=== PATIENT | female | born 1985 | race Caucasian/White ===

== ENCOUNTER 2021-11-04 16:01 | Outpatient (REF) | payer OTHER, MEDICAID, SELFPAY ==
--- NOTE | ~2021-11-04 | XR_ITS ---
EXAMINATION: X-RAY RIGHT HAND X-RAY LEFT HAND CLINICAL INFORMATION: Pain. COMPARISON: None TECHNIQUE: 3 views of each hand. FINDINGS: No acute fracture or malalignment. Carpal rows are maintained. No significant degenerative degenerative osteoarthritis. No erosions. No suspicious soft tissue calcifications. No unexpected radiopaque foreign bodies. XR/XR hand RT min 3V IMPRESSION: Normal radiographic examinations of both hands.
--- NOTE | ~2021-11-04 | XR_ITS ---
EXAMINATION: X-RAY RIGHT HAND X-RAY LEFT HAND CLINICAL INFORMATION: Pain. COMPARISON: None TECHNIQUE: 3 views of each hand. FINDINGS: No acute fracture or malalignment. Carpal rows are maintained. No significant degenerative degenerative osteoarthritis. No erosions. No suspicious soft tissue calcifications. No unexpected radiopaque foreign bodies. XR/XR hand LT min 3V IMPRESSION: Normal radiographic examinations of both hands.
[2021-11-04 16:57] LABS: MANUAL DIFF FLAG NO
[2021-11-04 17:41] LABS: Basophils Absolute Auto 0.1 X10*3/uL (0.0-0.2); Basophils Percent Auto 0.8 % (0-2); Eosinophils Absolute Auto 0.3 X10*3/uL (0.0-0.4); Eosinophils Percent Auto 4.1 % (0-4); Hematocrit 40.1 % (37.0-47.0); Hemoglobin 13.3 g/dl (12.0-16.0); Imm Gran Abs Auto 0.03 X10*3/uL (0.00-0.03); Imm Gran Pct Auto 0.4 % (0.0-0.4); Lymphocytes Absolute Auto 2.5 X10*3/uL (1.2-4.9); Lymphocytes Percent Auto 32.1 % (20-40); Mean Corpuscular HGB Conc 33.2 g/dl (31.0-35.0); Mean Corpuscular Hemoglobin 32.5 pg (27.0-33.0); Mean Platelet Volume 9.8 fL (9.4-12.3); Monocytes Absolute Auto 0.5 X10*3/uL (0.1-1.2); Monocytes Percent Auto 6.9 % (2-11); Neutrophils Absolute Auto 4.4 x10*3/uL (2.0-8.3); Neutrophils Percent Auto 55.7 % (45-73); Platelet Count 347 X10*3/uL (160-400); Red Blood Count 4.09 X10*6/uL (4.20-5.50); Red Cell Distribution Width 12.9 % (11.0-16.0); White Blood Count 7.9 X10*3/uL (4.8-10.8)
[2021-11-04 18:06] LABS: Alanine Aminotransferase 16 U/L (0-31); Albumin Level 4.4 g/dL (3.5-5.0); Alkaline Phosphatase 55 U/L (39-117); Anion Gap 16 (12-20); Aspartate Amino Transferase 21 U/L (5-31); Bilirubin Total 0.3 mg/dL (0.0-1.0); Blood Urea Nitrogen 13 mg/dL (9-16); Calcium 9.3 mg/dL (8.4-10.2); Carbon Dioxide 28 mmol/L (22-29); Chloride 102 mmol/L (96-108); Estimated Glomerular Filt Rate > 60; Glucose Random 74 mg/dL (60-115); Potassium 4.5 mmol/L (3.3-5.1); Rheumatoid Factor < 15.0 IU/mL (<15.0); Sodium 141 mmol/L (135-145); Total Protein 7.1 g/dL (6.5-8.0)
[2021-11-04 19:58] LABS: Erythrocyte Sedimentation Rate 3 MM/HR (0-20)
[2021-11-07 11:36] LABS: CRP High Sensitivity 0.4 mg/L
[2021-11-08 12:57] LABS: Anti Nuclear Antibody Screen NEGATIVE (NEGATIVE)
[2021-11-09 17:26] LABS: Cyclic Citrullinated Peptide <16 UNITS
== END 2021-11-04 16:02 | disposition home or self-care (01) ==
LOC: HO.HMGCX 16:01
PROVIDERS: PCP Internal Medicine; Visit Provider Family Medicine
DX: Z00.00 Encounter for general adult medical examination without abnormal findings (principal); M79.89 Other specified soft tissue disorders
CPT/HCPCS: 36415; 73130; 80053; 85025; 85652; 86038; 86039; 86141; 86200; 86431

== ENCOUNTER 2023-03-12 08:05 | Emergency (ER) | payer MEDICARE, MEDICAID, SELFPAY ==
[2023-03-12 08:08] VITALS: BP 142/87; PULSE 98; RESP 18; TEMP 37.5; O2SAT 100; BMI 20.7
[2023-03-12 08:18] VITALS: BP 123/90; PULSE 88; RESP 16; TEMP 36.6; O2SAT 100
--- OUTSIDE RECORDS SUMMARY | 2023-03-12 08:21 | XMS_ITS | Continuity of Care Document ---
Author Name Unknown Organization [facility] ter Address [address] [place] [address]- Care Team Providers Care Environmental Compliance Inspector Name Role Phone Kulwinder Kirkland MD Primary Care Physician [phone] [place] [facility] [place] - 08/06/[address] [address]- Attending Physician: Kulwinder Kirkland MD Admitting Physician: Kulwinder Kirkland MD Referring Physician: Kulwinder Kirkland MD Allergies, Adverse Reactions, Alerts Substance Reaction Severity Status doxycycline Hives Active Compazine Active vancomycin Active Medications gabapentin 300 mg oral capsule 1, capsule, By Mouth, 3 times a day, # 90 capsule, Refills 0, Tot. Refills 0, Maintenance, 218:41:00 EDT, Route to Pharmacy Electronically, [id number], 162, cm, 07/07/20 17:48:00 EDT, Height, 55, kg, 07/07/20 17:48:00 EDT, Dry Weight Start Date: 07/15/20 Status: Ordered lactulose 10 gm/15 ml oral syrup 30 mL = 20 Gm, By Mouth, 2 times a day, PRN as needed for constipation, # 480 mL, 1 Refills, Maintenance, 06/23/20 12:09:00 EDT, Syrup, [facility]/pharmacy #[id number], 30 mL By Mouth 2 times a day,PRN:as needed for constipation, 163, cm, 02/21/20 19:43:00 EST, He... Start Date: 06/23/20 Status: Ordered lamotrigine 25 mg oral tablet 50 mg, 2, tablet, By Mouth, Daily, # 60 tablet, Refills 1, Tot. Refills 1, Maintenance, 05/13/20 11:47:00 EDT, Route to Pharmacy Electronically, [facility]/pharmacy #[id number], Partial fill upon patient request if the prescription is for a schedule II opioid drug... Start Date: 05/13/20 Stop Date: 07/12/20 Status: Ordered prazosin 1 mg oral capsule 1 mg, 1, capsule, By Mouth, Daily at bedtime, # 30 capsule, Refills 1, Tot. Refills 1, Maintenance,05/13/20 11:49:00 EDT, Route to Pharmacy Electronically, [id number], Partial fill upon patient request if the prescription is for a schedule II... Start Date: 05/13/20 Status: Ordered RisperDAL 0.5 mg oral tablet 0.5 mg, 1, tablet, By Mouth, Daily at bedtime, PRN, # 30 tablet, Refills 1, Tot. Refills 1, Maintenance, Agitation Anxiety, 05/13/20 11:48:00 EDT, Route to Pharmacy Electronically, [facility]/pharmacy #[id number], Partial fill upon patient request if the prescript... Start Date: 05/13/20 Stop Date: 07/12/20 Status: Ordered Problem List Condition Effective Dates Status Health Status Inform ant ADHD (attention deficit hype ractivity disorder)(Confirmed) Active Chest wall pain(Confirmed) Active Constipation(Confirmed) Active Bipolar disorder with depression(Confirmed) Active Sleep disturbance(Confirmed) Active Generalized anxiety disorder(Confirmed) Active Headache(Confirmed) Active Major depression(Confirmed) Active Pain in right arm(Confirmed) Active Leg pain, right(Confirmed) Active Tobacco abuse(Confirmed) Active Social History Social History Type Response Smoking Status 10 or more cigarette s (1/2 pack or more)/day in last 30 days; Type: Cigarettes; Other: Reports smoking 1 to 1.5 packs/day (cigarettes), increased with recent stress; entered on: 01/28/20 Sex
--- OUTSIDE RECORDS SUMMARY | 2023-03-12 08:21 | XMS_ITS | Continuity of Care Document ---
Author Name Unknown Organization [facility] Address [address] [place] [address] [address] [place] [address]- Care Team Providers Care Environmental Science Technician Name Role Phone Kulwinder Kirkland MD Primary Care Physician Encounter [facility] [place] Date(s): 08/07/20 - 09/06/[address] [place] [address]- Attending Physician: Chayo Mcginnis Admitting Physician: AdmChayo borjas Referring Physician: AdmtrChayo Allergies, Adverse Reactions, Alerts Substance Reaction Severity Status doxycycline Hives Active vancomycin Active Compazine Active Medications gabapentin 300 mg oral capsule 1, capsule, By Mouth, 3 times a day, # 90 capsule, Refills 0, Tot. Refills 0, Maintenance, 218:41:00 EDT, Route to Pharmacy Electronically, [id number], 162, cm, 07/07/20 17:48:00 EDT, Height, 55, kg, 07/07/20 17:48:00 EDT, Dry Weight Start Date: 07/15/20 Status: Ordered lactulose 10 gm/15 ml oral syrup 30 mL = 20 Gm, By Mouth, 2 times a day, PRN as needed for constipation, # 480 mL, 1 Refills, Maintenance, 06/23/20 12:09:00 EDT, Syrup, [facility]/pharmacy #[id number], 30 mL By Mouth 2 times a day,PRN:as needed for constipation, 163, cm, 02/21/20 19:43:00 EST, He... Start Date: 06/23/20 Status: Ordered lamotrigine 25 mg oral tablet 50 mg, 2, tablet, By Mouth, Daily, # 60 tablet, Refills 1, Tot. Refills 1, Maintenance, 05/13/20 11:47:00 EDT, Route to Pharmacy Electronically, [facility]/pharmacy #[id number], Partial fill upon patient request if [...] 05/13/20 11:48:00 EDT, Route to Pharmacy Electronically, [facility]/pharmacy #[id number], Partial fill upon patient request if [...]
--- OUTSIDE RECORDS SUMMARY | 2023-03-12 08:21 | XMS_ITS | Continuity of Care Document ---
Author Name Unknown Organization [facility] ter Address [address] [place] [address]- Care Team Providers Care Ophthalmic Medical Technologist Name Role Phone Not on Staff, PCP Primary Care Physician Unavail able [place] [facility] [place] - 07/02/[address] [address]- Discharge Disposition: A-D/C AMA Attending Physician: Mikayla De La O MD Admitting Physician: Mikayla De La O MD Referring Physician: Not on Staff, Referring MD Allergies, Adverse Reactions, Alerts Substance Reaction Severity Status doxycycline Hives Active vancomycin Active Compazine Active Immunizations Given and Recorded Vaccine Date Status Refusal Reason SARS-CoV-2 (COVID-19) mRNA BNT-162b2 vac 03/04/21 Recorded SARS-CoV-2 (COVID-19) mRNA BNT-162b2 vac 07/01/20 Recorded SARS-CoV-2 (COVID-19) mRNA BNT-162b2 vac 06/10/20 Recorded Medications Methadone = 85 mg, By Mouth, Daily, 0 Refills, Maintenance, 02/24/21 12:00:00 EST, Partial fill upon patient request if the prescription is for a schedule II opioid drug. Start Date: 02/24/21 Status: Ordered Protonix 40 mg oral delayed release tablet 1 tablet = 40 mg, By Mouth, Daily, # 30 tablet, 3 Refills, Maintenance, 07/30/21 15:15:00 EDT, CR Tablet, 163, cm, 07/30/21 14:17:00 EDT, Height, 45.7, kg, 07/25/21 14:49:00 EDT, Dry Weight Start Date: 07/30/21 Stop Date: 11/27/21 Status: Ordered tiZANidine 2 mg oral tablet 2 mg, 1, tablet, By Mouth, Every 8 hours, PRN, # 15 tablet, Refills 0, Tot. Refills 0, Maintenance,as needed for muscle spasm, 08/11/21 11:55:00 EDT, Route to Pharmacy Electronically, [facility]/pharmacy #[id number], 163, cm, 07/30/21 14:17:00 EDT, Height, 45.7,... Start Date: 08/11/21 Status: Ordered Problem List Condition Confirmation Course Effective Dates Status H ealth Status Informant ADHD (attention deficit hyperactivity disorder) Confirmed Active Chest wall pain Confirmed Active Constipation Confirmed Active Bipolar disorder with depression Confirmed Active Sleep disturbance Confirmed Active Substance dependence Confirmed Active Generalized anxiety disorder Confirmed Active Headache Confirmed Active Suprasellar mass Confirmed Active Major depression Confirmed Active Major depressive disorder Confirmed Active Neck pain Confirmed Active Otitis externa, left Confirmed Active Pain in right arm Confirmed Active Leg pain, right Confirmed Active Healthcare maintenance Confirmed Active Tobacco abuse Confirmed Active Underweight Confirmed Active Results Radiology Reports * Exam Date Time Procedure Performing Provider Status 07/02/22 12:[address] Abd/Pelvis W/ IV Contrast Only Emilia Levy; Auth (Verified) Notes: (CT Abd/Pelvis W/ IV Contrast Only) Reason For Exam: vomiting, weight loss, abdominal pain;Other: RESULT: CT Abd/Pelvis W/ IV Contrast Only CT Abd/Pelvis W/ IV Contrast Only Hx of Present Illness: wt loss and black stools today; Reason: Other:; vomiting, weight loss, abdominal pain; Clinical Question(s): Tumor Primary; Order Comment: TECHNIQUE: Spiral CT through the abdomen and pelvis with IV contrast formatted in 3 planes. 100 cc of Omnipaque 300 was administered intravenously. This study was performed without oral contrast. Weight-based protocol using automatic tube modulation was used to optimize exposure parameters. CTDIvol Body: 9.30 mGy, DLP Body: 461 mGy*cm. COMPARISON: CT of the abdomen and pelvis dated 05/20/2015. FINDINGS: Sample Coordinator View Findings, Lines and Tubes: CTA of the chest and abdomen dated 07/25/2021. Visualized Chest: Lung bases are clear. No pleural effusion. The heart is normal in size. No pericardial effusion. Diaphragm: Normal. Liver: Normal. Gallbladder: No CT evidence of gallbladder pathology. Bile ducts: No biliary ductal dilation. Spleen: Normal. Pancreas: Normal. Adrenal glands: Normal. Kidneys and ureters: No hydronephrosis, stones, or suspicious masses. Right lower pole hypodensity that is too small to characterize is noted, requiring no dedicated follow up. Bladder: Normal. Reproductive organs: Unremarkable. Numerous prominent dilated pelvic venous structures in the adnexa, left greater than right, and dilated gonadal veins, especially on the left side. Similar findingson the exam in 2016. Stomach, small bowel, and large bowel: Normal. Appendix: Not seen, but no evidence of appendicitis. Peritoneum and retroperitoneum: No ascites or pneumoperitoneum. No omental or mesenteric lesions. Lymph nodes: No enlarged lymph nodes. Blood vessels: Normal. No aneurysm. No evidence of venous thrombosis. Dilated pelvic venous structures as above. Abdominal and pelvic wall: Unremarkable. Bones: No acute abnormality. IMPRESSION: No acute abnormality. There are again dilated pelvic venous structures and dilated gonadal veins, especially on the left side. There were similar findings in 2016. This finding is nonspecific but can be correlated for clinical evidence of pelvic congestion syndrome. WSN: [id number] Ordering Physician: Mikayla De La O Dictated By: Janiya Contreras MD Dictated Date/Time: 07/02/22 12:46 p Reviewed By: Janiya Contreras MD Signed By: Janiya Contreras MD Signed Date/Time: 07/02/22 12:46 pm Transcribed By: MILLIE Transcribed Date/Time: 07/02/22 12:41 pm Vital Signs Most recent to oldest [Reference Range]: 1 2 Oxygen Saturation [94-100 %] 99 % (07/02/22 10:00 AM) 99 % (07/02/22 9:49 AM) Pulse Rate [55-90 bpm] 88 bpm (07/02/22 10:00 AM) 84 bpm (07/02/22 9:49 AM) Blood Pressure [90-138/55-84 mm Hg] 126/ 87mm Hg (07/02/22 10:00 AM) Respiratory Rate [16-30 br/min] 16 br/mi n (07/02/22 10:00 AM) Temperature [96.8-100.4 DegF] 99.0 DegF (07/02/22 10:00 AM) Mode of Delivery (Oxygen) Room air (07/02/22 9:49 AM) Social History Social History Type Response Smoking Status 10 or more cigarette s (1/2 pack or more)/day in last 30 days; Type: Cigarettes; Other: Reports smoking 1 to 1.5 packs/day (cigarettes), increased with recent stress; entered on: 01/28/20 Sex EKG study * Event Display: ECG 12-Lead Authored Date: [id number] Please click on pdf link to open report * Event Display: ECG 12-Lead Authored Date: Ventricular Rate: 55 BPM Atrial Rate: 55 BPM P-R Interval: 118 ms QRS Duration: 76 ms Q-T Interval: 448 ms QTC Calculation(Bazett): 428 ms P [place]: 29 degrees R [place]: 85 degrees T [place]: 73 degrees Sinus bradycardia Otherwise normal ECG When compared with ECG of 25-JUL-2021 16:08, No significant change was found Confirmed by KIRA MONSALVE ([id number]) on 07/02/2022 1:25:58 PM [place]: KIRA MONSALVE CT Abdomen and Pelvis W contrast IV * ARACELI Yin S: EVELINE Contreras MD, Janiya N: VERIFY Event Display: Result: Authored Date: [id number] CT Abd/Pelvis W/ IV Contrast Only Hx of Present Illness: wt loss and black stools today; Reason: Other:; vomiting, weight loss, abdominal pain; Clinical Question(s): Tumor Primary; Order Comment: TECHNIQUE: Spiral CT through the abdomen and pelvis with IV contrast formatted in 3 planes. 100 cc of Omnipaque 300 was administered intravenously. This study was performed without oral contrast. Weight-based protocol using automatic tube modulation was used to optimize exposure parameters. CTDIvol Body: 9.30 mGy, DLP Body: 461 mGy*cm. COMPARISON: CT of the abdomen and pelvis dated 05/20/2015. FINDINGS: Sample Coordinator View Findings, Lines and Tubes: CTA of the chest and abdomen dated 07/25/2021. Visualized Chest: Lung bases are clear. No pleural effusion. The heart is normal in size. No pericardial effusion. Diaphragm: Normal. Liver: Normal. Gallbladder: No CT evidence of gallbladder pathology. Bile ducts: No biliary ductal dilation. Spleen: Normal. Pancreas: Normal. Adrenal glands: Normal. Kidneys and ureters: No hydronephrosis, stones, or suspicious masses. Right lower pole hypodensity that is too small to characterize is noted, requiring no dedicated follow up. Bladder: Normal. Reproductive organs: Unremarkable. Numerous prominent dilated pelvic venous structures in the adnexa, left greater than right, and dilated gonadal veins, especially on the left side. Similar findingson the exam in 2016. Stomach, small bowel, and large bowel: Normal. Appendix: Not seen, but no evidence of appendicitis. Peritoneum and retroperitoneum: No ascites or pneumoperitoneum. No omental or mesenteric lesions. Lymph nodes: No enlarged lymph nodes. Blood vessels: Normal. No aneurysm. No evidence of venous thrombosis. Dilated pelvic venous structures as above. Abdominal and pelvic wall: Unremarkable. Bones: No acute abnormality. IMPRESSION: No acute abnormality. There are again dilated pelvic venous structures and dilated gonadal veins, especially on the left side. There were similar findings in 2016. This finding is nonspecific but can be correlated for clinical evidence of pelvic congestion syndrome. WSN: [id number] Ordering Physician: Mikayla De La O Dictated By: Janiya Contreras MD Dictated Date/Time: 07/02/22 12:46 p Reviewed By: Janiya Contreras MD Signed By: Janiya Contreras MD Signed Date/Time: 07/02/22 12:46 pm Transcribed By: MILLIE Transcribed Date/Time: 07/02/22 12:41 pm Patient Care team information Care Team Personnel Name: Not on Staff, PCP Position: S Physician (General Medicine) Member Role: PCP Care Team Related Persons Name: TEMI STAPLES Name: SUSAN DARBY Address: [address] [address] Name: SUSAN BANUELOS Address: [address] [address] Name: CLYDE RM Address: [place] [address]
--- OUTSIDE RECORDS SUMMARY | 2023-03-12 08:21 | XMS_ITS | Continuity of Care Document ---
Author Name Unknown Organization [facility] ter Address [address] [place] [address]- Care Team Providers Care Bike Mechanic Name Role Phone Emma Wang NP Primary Care Physician [place] [facility] [place] Date(s): 06/27/19 - 08/30/[address] [address]- [facility] Attending Physician: Emma Wang NP Admitting Physician: Emma Wang NP Referring Physician: Emma Wang NP Allergies, Adverse Reactions, Alerts Substance Reaction Severity Status vancomycin Active Compazine Active Medications clonazePAM 1 mg oral tablet See Instructions, TAKE 1 TABLET BY MOUTH TWICE A DAY, # 60 tablet, 0 Refills, Soft Stop, 04/17/19 11:06:00 EST, [id number], 163, cm, 04/11/19 22:26:00 EST, Height, 52.5, kg, 04/11/19 22:26:00EST, Dry Weight Start Date: 04/17/19 Status: Ordered Problem List Condition Effective Dates Status Health Status Inform ant Bipolar disorder with depression(Confirmed) Active Tobacco abuse(Confirmed) Active Social History Social History Type Response Smoking Status 10 or more cigarette s (1/2 pack or more)/day in last 30 days entered on: 08/10/18 Sex
--- OUTSIDE RECORDS SUMMARY | 2023-03-12 08:21 | XMS_ITS | Continuity of Care Document ---
Author Name Unknown Organization [facility] ter Address [address] [place] [address]- Care Team Providers Care Tank Setter Name Role Phone Kulwinder Kirkland MD Primary Care Physician Encounter [facility] [place] Date(s): 02/07/20 - 02/07/[address] [address]- Discharge Disposition: A-Error Chart/Home (ED Only) Attending Physician: Not on Staff, Attending MD Admitting Physician: Not on Staff, Admitting MD Referring Physician: Not on Staff, Referring MD Allergies, Adverse Reactions, Alerts Substance Reaction Severity Status doxycycline Hives Active vancomycin Active Compazine Active Medications amphetamine-dextroamphetamine 20 mg oral capsule, extended release 1 capsule = 20 mg, By Mouth, Daily in AM, # 30 capsule, 0 Refills, Maintenance, 02/01/20 15:08:00 EST, ER Capsule, [id number], Partial fill upon patient request if the prescription is for a schedule II opioid drug., 163, cm, 11/18/19 0:36:00 E... Start Date: 02/01/20 Status: Ordered cyclobenzaprine 5 mg oral tablet 1 tablet = 5 mg, By Mouth, 3 times a day, PRN as needed for muscle spasm, for 3 days, # 9 tablet, 0Refills, Acute 02/10/20 18:06:00 EST, 02/07/20 18:06:00 EST, Tablet, [facility], Partial fill upon patient request if the prescription is for a... Start Date: 02/07/20 Stop Date: 02/10/20 Status: Ordered FLUoxetine 10 mg oral capsule 30 mg, 3, capsule, By Mouth, Daily, # 90 capsule, Refills 0, Tot. Refills 0, Maintenance, 02/05/20 8:47:00 EST, Route to Pharmacy Electronically, [facility]/pharmacy #[id number], 163, cm, 11/18/19 0:36:00 EDT, Height, 61.5, kg, 11/18/19 0:36:00 EDT, Dry Weight Start Date: 02/05/20 Status: Ordered ibuprofen 600 mg oral tablet 600 mg, 1, tablet, By Mouth, 4 times a day, for 5 days, # 20 tablet, Refills 0, Tot. Refills 0, Acute 02/12/20 18:06:00 EST, 02/07/20 18:06:00 EST, Route to Pharmacy Electronically, [facility]/pharmacy #[id number], Partial fill upon patient request if the prescrip... Start Date: 02/07/20 Stop Date: 02/12/20 Status: Ordered prazosin 1 mg oral capsule See Instructions, Start with 1 capsule daily at bedtime for sleep/nightmares. Can increase by 1 capevery 3 days, up to maximum of 3 mg/cap daily at bedtime., # 90 capsule, Refills 0, Tot. Refills 0,Maintenance, 01/28/20 12:36:00 EST, Instructions Re... Start Date: 01/28/20 Status: Ordered Problem List Condition Effective Dates Status Health Status Inform ant Bipolar disorder with depression(Confirmed) Active Sleep disturbance(Confirmed) Active Generalized anxiety disorder(Confirmed) Active Major depression(Confirmed) Active Tobacco abuse(Confirmed) Active Social History Social History Type Response Smoking Status 10 or more cigarette s (1/2 pack or more)/day in last 30 days; Type: Cigarettes; Other: Reports smoking 1 to 1.5 packs/day (cigarettes), increased with recent stress; entered on: 01/28/20 Sex
--- OUTSIDE RECORDS SUMMARY | 2023-03-12 08:21 | XMS_ITS | Continuity of Care Document ---
Author Name Unknown Organization [facility] Address [address] [place] [address] ve [address] [place] [address]- Care Team Providers Care Miller Rod Mill Name Role Phone Kulwinder Kirkland MD Primary Care Physician Encounter [facility] [place] Date(s): 06/25/20 - 09/06/20 [facility] [address] [place] [address]- Attending Physician: Tyrone MCKENZIE, Susi Martinez Referring Physician: Kulwinder Kirkland MD Allergies, Adverse Reactions, Alerts Substance Reaction Severity Status doxycycline Hives Active vancomycin Active Compazine Active Medications gabapentin 300 mg oral capsule 1, capsule, By Mouth, 3 times a day, # 90 capsule, Refills 0, Tot. Refills 0, Maintenance, 218:41:00 EDT, Route to Pharmacy Electronically, [id number], 162, cm, 07/07/20 17:48:00 EDT, Height, 55, kg, 07/07/20 17:48:00 EDT, Dry Weight Start Date: 07/15/20 Status: Ordered lactulose 10 gm/15 ml oral syrup 30 mL = 20 Gm, By Mouth, 2 times a day, PRN as needed for constipation, # 480 mL, 1 Refills, Maintenance, 06/23/20 12:09:00 EDT, Syrup, [facility]/pharmacy #[id number], 30 mL By Mouth 2 times a day,PRN:as needed for constipation, 163, cm, 02/21/20 19:43:00 EST, He... Start Date: 06/23/20 Status: Ordered lamotrigine 25 mg oral tablet 50 mg, 2, tablet, By Mouth, Daily, # 60 tablet, Refills 1, Tot. Refills 1, Maintenance, 05/13/20 11:47:00 EDT, Route to Pharmacy Electronically, [facility]/pharmacy #1234, Partial fill upon patient request if the prescription is for a schedule II opioid drug... Start Date: 05/13/20 Stop Date: 07/12/20 Status: Ordered prazosin 1 mg oral capsule 1 mg, 1, capsule, By Mouth, Daily at bedtime, # 30 capsule, Refills 1, Tot. Refills 1, Maintenance,05/13/20 11:49:00 EDT, Route to Pharmacy Electronically, [facility]/pharmacy #[id number], Partial fill upon patient request if the prescription is for a schedule II... Start Date: 05/13/20 Status: Ordered RisperDAL 0.5 mg oral tablet 0.5 mg, 1, tablet, By Mouth, Daily at bedtime, PRN, # 30 tablet, Refills 1, Tot. Refills 1, Maintenance, Agitation Anxiety, 05/13/20 11:48:00 EDT, Route to Pharmacy Electronically, [facility]/pharmacy #[id number], Partial fill upon patient request [...]
--- NOTE | 2023-03-12 08:32 | PC.NURSE ---
Pt awake, alert and oriented. Breathing even and unlabored. Skin warm and dry, moist mucus membranes. Pt reports constipation X1 week with little relief when using miralax. Pt reports intermittent ABD pain, generalized X1 week, non at this time. Pt reports bright red blood when trying to have a bowel movement, hx of hemorrhoids and prolapse. Pt reports pain in rectal area 7/10. Provider at the bedside doing exam.
--- NOTE | 2023-03-12 08:34 | ED_ITS ---
HPI - General Adult General Chief complaint: Abdominal Pain Stated complaint: Rectal bleed Time Seen by Provider: 03/12/23 08:16 History of Present Illness HPI narrative: The patient is a 37-year-old female who says that she has problems with chronic constipation. She has been on methadone but stopped taking methadone about a month ago. She had been on methadone for about 3 years an ultimately decided that she no longer wanted to continue methadone. She said that she had been placed on methadone inappropriately. She says that she had mostly had problems with alcohol rather than opioids. Patient says that she has had problems with constipation in the past and at 1 point had a rectal prolapse. Recently the patient has felt as though she might be constipated and has been taking MiraLax. Two days ago she started passing bright red blood with stools and this made her very concerned. She also has been having abdominal pains. This morning she went to work at [employer] at 04:00 but was having a sense of a frequent need to have a bowel movement and was passing small amounts of mucus and blood. She felt generally unwell and had some abdominal pain. Since she was not feeling well she left work and came to the emergency room. No fevers. No vomiting. She ate some hash browns this morning. The patient says she takes trazodone, clonidine, and hydroxyzine. She says these are prescribed by a provider at [facility]. She says she does not have a primary care doctor. She says a year ago her primary care doctor stopped taking her insurance and she has not been able to get a new primary care doctor yet. She says that the psychiatric medications have been prescribed by a provider at [facility] but she anticipates that she will only have 1 more month to follow-up with this clinic. The patient says that since stopping methadone she has gained 16 pounds. She says that she went from 100 pounds to 116 pounds. Related Data Previous Rx's Medication Instructions Recorded meloxicam 15 mg tablet 15 mg PO DAILY 30 days #30 tabs 11/04/21 prednisone 20 mg tablet 40 mg (2 x 20 mg) PO DAILY 4 days 11/04/21 #8 tabs docusate sodium 100 mg capsule 100 mg PO BID #20 caps 03/12/23 hydrocortisone 1 %-pramoxine 1 % 1 appl [place] QID PRN hemorrhoids #10 03/12/23 rectal foam (Proctofoam HC) grams Allergies Allergy/AdvReac Type Severity Reaction Status Date / Time codeine [CODEINE] Allergy Intermediate HIVES Verified 03/12/23 08:11 clindamycin [CLINDAMYCIN] Allergy Mild HIVES Verified 03/12/23 08:11 vancomycin [VANCOMYCIN] Allergy Mild HIVES Verified 03/12/23 08:11 venlafaxine Allergy Mild VOMITS Verified 03/12/23 08:11 Clindamycin HCl Allergy Unknown hives Uncoded 03/12/23 08:11 Effexor AdvReac Unknown vomiting Uncoded 03/12/23 08:11 Review of Systems 2 Review of Systems: Yes all other systems are reviewed and are negative [facility] Social History Social History (System 03/04/22 @ 08:34 by Gina Galindo) Smoked in Last 30 Days: No Use of substances other than those prescribed or required for medical reasons: No Advance Directives: No Physical Exam ED Vital Signs: Vital Signs - 24 hr 03/12/23 08:08 03/12/23 08:18 Temperature 99.5 F 98 F Pulse Rate 98 88 Respiratory Rate 18 16 Blood Pressure 142/87 H 123/90 H Pulse Oximetry 100 100 Oxygen Delivery Method Room Air Room Air BMI result Body Mass Index 20.7 Const Other: The patient is awake and alert. She does not appear in obvious distress. HENMT Other: Face is symmetrical, mucous membranes moist Eyes Other: Pupils are round equal, conjunctivae are clear, extraocular movements intact Resp Effort & Inspection: normal respiratory effort Auscultation: clear to auscultation bilaterally Cardio Rate: regular rate Rhythm: regular rhythm Heart sounds: S1 normal heart sound present and S2 normal heart sound present GI Other: Abdomen is soft. There is some right upper quadrant tenderness without rebound or guarding. On rectal exam there was an external hemorrhoid present which showed signs of likely being a site of recent bleeding. With digital exam there was no stool in the rectum. No masses. No abnormal findings. No blood apparent. Back/Spine/Pelvis Other: No CVA percussion tenderness Skin Other: Pale and dry Neuro Other: Awake, alert, appropriate, grossly neurologically intact. Extrem Other: No peripheral edema Medical Decision Making Medical Decision Making MDM Narrative: Patient describes rectal bleeding highly suggestive of hemorrhoidal source. On exam she has a hemorrhoid that may have recently been bleeding. There was no active bleeding. There is no rectal prolapse. The rectal exam was otherwise unremarkable with no masses and no blood. Clinically the patient looks well otherwise. Her labs are entirely unremarkable. She is reassured. She should continue MiraLax. She was prescribed docusate sodium as well and also Proctofoam. She is encouraged to continue efforts to get a new primary care doctor. Lab Data 03/12/23 08:47 03/12/23 08:47 Labs: Lab Results 03/12/23 03/12/23 Range/Units 08:47 09:23 WBC 6.3 (4.8-10.8) X10*3/uL RBC 4.32 (4.20-5.50) X10*6/uL Hgb 13.8 (12.0-16.0) g/dl Hct 40.0 (37.0-47.0) % MCV 92.6 (80.0-98.0) fL MCH 31.9 (27.0-33.0) pg MCHC 34.5 (31.0-35.0) g/dl RDW 13.0 (11.0-16.0) % Plt Count 330 (160-400) X10*3/uL MPV 9.2 L (9.4-12.3) fL Immature Gran % (Auto) 0.3 (0.0-0.4) % Neut % (Auto) 55.9 (45-73) % Lymph % (Auto) 30.4 (20-40) % [place] % (Auto) 6.9 (2-11) % Eos % (Auto) 5.9 H (0-4) % Baso % (Auto) 0.6 (0-2) % Lymph # (Auto) 1.9 (1.2-4.9) X10*3/uL [place] # (Auto) 0.4 (0.1-1.2) X10*3/uL Eos # (Auto) 0.4 (0.0-0.4) X10*3/uL Baso # (Auto) 0.0 (0.0-0.2) X10*3/uL Abs Immat Gran (auto) 0.02 (0.00-0.03) X10*3/uL Absolute Neuts (auto) 3.5 (2.0-8.3) x10*3/uL Absolute Nucleated RBC 0.000 (0.0-0.012) X10*3/uL Nucleated RBC % (auto) 0.0 (0.0-0.2) /100WBC Sodium 138 (135-145) mmol/L Potassium 3.9 (3.3-5.1) mmol/L Chloride 105 (96-108) mmol/L Carbon Dioxide 23 (22-29) mmol/L Anion Gap 14 (12-20) BUN 12 (9-16) mg/dL Creatinine 0.65 (0.5-1.4) mg/dL Estim Creat Clear Calc 96.1 Estimated GFR > 60 Random Glucose 92 (60-115) mg/dL Calcium 8.9 (8.4-10.2) mg/dL Total Bilirubin 0.3 (0.0-1.0) mg/dL Direct Bilirubin 0.1 (0.0-0.5) mg/dL AST 18 (5-31) U/L ALT 16 (0-31) U/L Alkaline Phosphatase 46 (39-117) U/L C-Reactive Protein < 0.04 (< or = 0.50) mg/dL Total Protein 7.1 (6.5-8.0) g/dL Albumin 4.2 (3.5-5.0) g/dL Lipase 24 (8-78) U/L Beta HCG, Quant < 2 mIU/mL Urine Color Yellow Urine Appearance Clear Urine pH 7.5 (5.0-9.0) Ur Specific [place] <= 1.005 (1.005-1.025) Urine Protein Negative (Neg-Trace) mg/dL Urine Glucose (UA) Negative (Negative) mg/dL Urine Ketones Negative (Negative) mg/dL Urine Blood Negative (Negative) Urine Nitrite Negative (Negative) Ur Leukocyte Esterase Negative (Negative) Discharge Plan Discharge Clinical Impression: Bleeding per rectum, Hemorrhoids Patient Disposition: Home, Self-Care Instructions: Hemorrhoids (ED) Additional Instructions: I believe that your rectal bleeding is coming from hemorrhoids. In order to manage her hemorrhoids I would recommend continuing the MiraLax to help keep your stool soft. You may also take the prescribed docusate. This will also help keep your stool soft. Additionally you may apply the Proctofoam prescribed to your hemorrhoids on an as-needed basis. Please continue your efforts to get a regular doctor. Contact the [facility] on Tuesday to see if you can get a new patient appointment. Return to the emergency room if worse. Prescriptions: New docusate sodium 100 mg capsule 100 mg PO BID Qty: 20 0RF Proctofoam HC 1-1 % foam 1 appl CA QID PRN (Reason: hemorrhoids) Qty: 10 0RF No Action prednisone 20 mg tablet 40 mg PO DAILY 4 Days Qty: 8 0RF meloxicam 15 mg tablet 15 mg PO DAILY 30 Days Qty: 30 2RF Referrals: [facility] [Provider Group] (Hemorrhoids, insomnia)
[2023-03-12 08:51] LABS: MANUAL DIFF FLAG NO
[2023-03-12 09:00] LABS: Basophils Percent Auto 0.6 % (0-2); Eosinophils Absolute Auto 0.4 X10*3/uL (0.0-0.4); Eosinophils Percent Auto 5.9 % (0-4); Hemoglobin 13.8 g/dl (12.0-16.0); Imm Gran Abs Auto 0.02 X10*3/uL (0.00-0.03); Imm Gran Pct Auto 0.3 % (0.0-0.4); Lymphocytes Absolute Auto 1.9 X10*3/uL (1.2-4.9); Lymphocytes Percent Auto 30.4 % (20-40); Mean Corpuscular HGB Conc 34.5 g/dl (31.0-35.0); Mean Corpuscular Hemoglobin 31.9 pg (27.0-33.0); Mean Corpuscular Volume 92.6 fL (80.0-98.0); Mean Platelet Volume 9.2 fL (9.4-12.3); Monocytes Absolute Auto 0.4 X10*3/uL (0.1-1.2); Monocytes Percent Auto 6.9 % (2-11); Neutrophils Absolute Auto 3.5 x10*3/uL (2.0-8.3); Neutrophils Percent Auto 55.9 % (45-73); Platelet Count 330 X10*3/uL (160-400); Red Blood Count 4.32 X10*6/uL (4.20-5.50); White Blood Count 6.3 X10*3/uL (4.8-10.8)
[2023-03-12 09:31] LABS: Appearance Urine Clear; Color Urine Yellow; Glucose Urine UA Negative (Negative); Leukocyte Esterase Urine Negative (Negative); Nitrite Urine Negative (Negative); PH 7.5 (5.0-9.0); Specific Gravity - Urine <= 1.005 (1.005-1.025); Urine Blood Negative (Negative); Urine Ketones Negative (Negative); Urine Protein Negative (Neg-Trace)
[2023-03-12 09:56] LABS: Alanine Aminotransferase 16 U/L (0-31); Albumin Level 4.2 g/dL (3.5-5.0); Alkaline Phosphatase 46 U/L (39-117); Anion Gap 14 (12-20); Aspartate Amino Transferase 18 U/L (5-31); Bilirubin Direct 0.1 mg/dL (0.0-0.5); Bilirubin Total 0.3 mg/dL (0.0-1.0); Blood Urea Nitrogen 12 mg/dL (9-16); C Reactive Protein < 0.04 mg/dL (< or = 0.50); Calcium 8.9 mg/dL (8.4-10.2); Carbon Dioxide 23 mmol/L (22-29); Chloride 105 mmol/L (96-108); Creatinine Clr Calc Pharmacy 96.1; Estimated Glomerular Filt Rate > 60; Glucose Random 92 mg/dL (60-115); HCG Quantitative < 2 mIU/mL; Lipase 24 U/L (8-78); Potassium 3.9 mmol/L (3.3-5.1); Sodium 138 mmol/L (135-145); Total Protein 7.1 g/dL (6.5-8.0)
[2023-03-12 10:27] VITALS: BP 120/81; PULSE 78; RESP 16; TEMP 36.8; O2SAT 100
== END 2023-03-12 10:28 | disposition home or self-care (01) ==
PROVIDERS: Emergency Provider Emergency Medicine
DX: K64.4 Residual hemorrhoidal skin tags (principal); K62.5 Hemorrhage of anus and rectum; R10.11 Right upper quadrant pain
CPT/HCPCS: 36415; 80048; 80076; 81003; 83690; 84702; 85025; 86140; 99283; 99284

== ENCOUNTER 2023-09-03 22:14 | Emergency (ER) | payer OTHER, SELFPAY ==
--- NOTE | ~2023-09-03 | XR_ITS ---
EXAMINATION: XR FOOT, LEFT CLINICAL INFORMATION: Pain COMPARISON: None available. TECHNIQUE: AP, lateral, and oblique views of the left foot. FINDINGS: The bones and soft tissues are normal. No fracture. Alignment is anatomic. Joint spaces are maintained. XR/XR foot LT min 3V IMPRESSION: Normal left foot.
[2023-09-03 22:18] VITALS: BP 118/64; PULSE 85; RESP 18; TEMP 36.8; O2SAT 98; BMI 20.3
--- NOTE | 2023-09-03 22:45 | ED.GENADULT ---
HPI - General Adult General Chief complaint: Extremity Injury, Lower Stated complaint: left foot pain Time Seen by Provider: 09/03/23 22:45 History of Present Illness ED Provider: Arthur JUAN narrative: The patient is a 37-year-old woman who was at home sitting at her kitchen table. She had her left foot tucked under her right thigh on the chair. Her son sat on her right thigh and this essentially caused a crush type injury to the left foot. She says that she felt a crack and a pop and now has a great deal of pain in the midfoot region. Related Data Previous Rx's ?Medication ?Instructions ?Recorded meloxicam 15 mg tablet 15 mg PO DAILY 30 days #30 tabs 11/04/21 prednisone 20 mg tablet 40 mg (2 x 20 mg) PO DAILY 4 days 11/04/21 #8 tabs docusate sodium 100 mg capsule 100 mg PO BID #20 caps 03/12/23 hydrocortisone 1 %-pramoxine 1 % 1 appl [place] QID PRN hemorrhoids #10 03/12/23 rectal foam (Proctofoam HC) grams Allergies Allergy/AdvReac Type Severity Reaction Status Date / Time codeine [CODEINE] Allergy Intermediate HIVES Verified 09/03/23 22:20 clindamycin [CLINDAMYCIN] Allergy Mild HIVES Verified 09/03/23 22:20 vancomycin [VANCOMYCIN] Allergy Mild HIVES Verified 09/03/23 22:20 venlafaxine Allergy Mild VOMITS Verified 09/03/23 22:20 Clindamycin HCl Allergy Unknown hives Uncoded 09/03/23 22:20 Effexor AdvReac Unknown vomiting Uncoded 09/03/23 22:20 Review of Systems Review of Systems: Yes all other systems are reviewed and are negative [facility] Social History Social History (System 03/04/22 @ 08:34 by Gina Galindo) Unable to assess alcohol history related to: Unknown Use of substances other than those prescribed or required for medical reasons: No Advance Directives: No Advance Directives Information Provided: No Do you have a plan to hurt others: No Plan Physical Exam ED Vital Signs: Vital Signs - 24 hr 09/03/23 22:18 09/04/23 00:23 Temperature 98.3 F 98.3 F Pulse Rate 85 85 Respiratory Rate 18 18 Blood Pressure 118/64 118/64 Pulse Oximetry 98 98 Oxygen Delivery Method Room Air Room Air BMI result Body Mass Index 20.3 Const Other: The patient is awake and alert. Said she was very uncomfortable. She did not seem in acute distress. HENMT Other: To the face was unremarkable. Eyes Other: Pupils were round equal, conjunctivae clear Resp Effort & Inspection: normal respiratory effort Skin Other: The skin of the dorsum of the left foot seemed unremarkable to me although the patient said that it looked swollen. Skin was intact. Neuro Other: The patient is awake and alert with a normal mental status. Normal sensation in the feet Extrem Other: The patient is tender in the left midfoot. No deformity. Good pulses in the foot Medications Administered Discontinued Medications Generic Name Dose Route Start Last Admin Trade Name Freq PRN Reason Stop Dose Admin Ketorolac Tromethamine 30 mg 09/03/23 22:49 09/03/23 22:55 Ketorolac Tromethamine 30 Mg/Ml Vial IM 09/03/23 22:50 30 mg ONCE ONE Administration Medical Decision Making Medical Decision Making [facility] Narrative: The patient comes to the emergency room for evaluation of acute left foot pain after a crush type injury. X-ray is negative. The patient was reassured. She is given a hard-soled shoe and crutches. She is advised to keep the foot elevated. She was given lack for pain. She was given a work note. Discharge Plan Discharge Clinical Impression: Contusion of left foot Patient Disposition: Home, Self-Care Additional Instructions: The x-ray of your foot does not show any broken bones. Resting the foot over the next several days. Keep the foot elevated whenever you are sitting. You have been provided with a shoe for an injured foot. Also crutches. Use the crutches to keep weight off the foot. You may use ibuprofen and acetaminophen as needed for pain. Please follow up soon with your regular doctor Prescriptions: No Action docusate sodium 100 mg capsule 100 mg PO BID Qty: 20 0RF Proctofoam HC 1-1 % foam 1 appl [place] QID PRN (Reason: hemorrhoids) Qty: 10 0RF prednisone 20 mg tablet 40 mg PO DAILY 4 Days Qty: 8 0RF meloxicam 15 mg tablet 15 mg PO DAILY 30 Days Qty: 30 2RF Stand Alone Forms: Work/School Release Interventions: ED Discharge Assessment Last Done: 09/04/23 00:23 Discharge Date/Time: 09/04/23 00:24 Print Language: Luxembourgish
[2023-09-03] MEDS: Ketorolac Tromethamine 30 MG/ML VIAL IM (22:55)
[2023-09-04 00:23] VITALS: BP 118/64; PULSE 85; RESP 18; TEMP 36.8; O2SAT 98
== END 2023-09-04 00:24 | disposition home or self-care (01) ==
PROVIDERS: Emergency Provider Emergency Medicine
DX: S90.32XA Contusion of left foot, initial encounter (principal); W50.0XXA Accidental hit or strike by another person, initial encounter; Y93.89 Activity, other specified; Y92.009 Unspecified place in unspecified non-institutional (private) residence as the place of occurrence of the external cause; Y99.9 Unspecified external cause status
CPT/HCPCS: 73630; 96372; 99284; J1885

== ENCOUNTER 2024-07-18 16:12 | Inpatient (IN) | payer OTHER, SELFPAY ==
--- NOTE | ~2024-07-18 | CT_ITS ---
CLINICAL HISTORY: pain, RUQ, epigastric CT abdomen and pelvis with contrast Comparison: None Findings: No consolidation or effusion. Pericholecystic and periportal edema. No bile duct dilatation or radiopaque cholelithiasis. Abdominal solid organs otherwise unremarkable. No urolithiasis. No bowel obstruction, pneumoperitoneum, or pneumatosis. Mesenteric vessels patent. Large amount of stool in the proximal colon. Left posterior lower uterine segment fibroid 3.8 cm. Physiologic amount of fluid in the pelvis. The bones are intact. IMPRESSION: 1. Pericholecystic and periportal edema of uncertain etiology. Differential could include sequela of rapid infusion of IV fluids, or hepatitis/cholecystitis. 2. Large amount of stool in the proximal colon. No bowel obstruction. 3. Left uterine fibroid. Follow-up as needed. This document has been electronically signed by: Christi Arita MD on 07/19/2024 01:12:47
--- NOTE | ~2024-07-18 | NM_ITS ---
EXAMINATION: NM HEPATOBILIARY WITH PHARM HISTORY: ?acalculous cholecystitis. TECHNIQUE: An hepatobiliary scan was performed following the intravenous administration of 5.20 mCi technetium 99m-mebrofenin. Sequential images were obtained over 1 hour. Subsequently, the patient received 1.0 microgram of IV CCK over 30 minutes and additional imaging was performed. COMPARISON: Correlation is made with an abdominal ultrasound dated 07/18/2024. FINDINGS: There is normal uptake and excretion of the radiopharmaceutical by the liver. Gallbladder activity is noted at 14 minutes. Common bile duct activity is seen at 18 minutes. Small bowel activity is noted at 75 minutes. After the administration of intravenous CCK, the estimated gallbladder ejection fraction is 23%, which is markedly decreased (normal 35-80%). NM/NM hepatobiliary w pharm IMPRESSION: 1. No evidence of cystic duct obstruction or acute cholecystitis. 2. Abnormally low gallbladder ejection fraction, consistent with biliary dyskinesia. Electronically signed by: Moiz Contreras MD 07/19/2024 02:31 PM EDT
--- NOTE | ~2024-07-18 | XR_ITS ---
CLINICAL HISTORY: pain Radiograph of the abdomen 1 view Comparison: US - US ABDOMEN LIMITED - 07/18/24 19:35 EDT CR - XR CHEST 2V - 07/18/24 17:20 EDT Findings: Number of film(s): 2 obtained upright. No abnormal bowel dilatation. Mild amount of retained stool in the colon. No free air beneath the diaphragm. No radiopaque foreign body. No pathologic calcification. There are several pelvic phleboliths. No acute osseous abnormality. Impression: 1. Nonspecific and nonobstructive bowel gas pattern. This document has been electronically signed by: Ayah Clark DO on 07/18/2024 20:18:23
--- NOTE | ~2024-07-18 | US_ITS ---
CLINICAL HISTORY: GB, CBD, liver US ABDOMEN LIMITED Comparison: None Findings: Trace perihepatic ascites. The liver is normal in size and echotexture. There is no intrahepatic bile duct dilatation. The common bile duct measures 4.6 mm. There is a positive sonographic Vicente sign. Gallbladder is moderately distended. There is gallbladder wall thickening up to 4.1 mm. No shadowing gallstone or thickened bile. The main portal vein is antegrade. Pancreas and right kidney were not evaluated. IMPRESSION: 1. No gallbladder stones or sludge. There is a positive sonographic Vicente sign with gallbladder wall thickening. The possibility of acalculous cholecystitis is raised. 2. No significant biliary ductal dilatation. 3. Trace perihepatic ascites. This document has been electronically signed by: Ayah Clark DO on 07/18/2024 20:14:04
--- NOTE | ~2024-07-18 | XR_ITS ---
CLINICAL HISTORY: epigastric chest pain 2 view chest x-ray Comparison: None Findings: Ill-defined opacity in the right upper lobe: [place] artifact versus patchy infiltrate. No pleural effusion. No pneumothorax. Heart size is normal. No acute fracture. IMPRESSION: Ill-defined opacity in the right upper lobe: [place] artifact versus patchy infiltrate. This document has been electronically signed by: Ayah Clark DO on 07/18/2024 17:52:08
[2024-07-18 16:26] VITALS: BP 142/97; PULSE 120; RESP 20; TEMP 36.9; O2SAT 96; BMI 19.6
--- NOTE | 2024-07-18 16:30 | ECG_ITS ---
Test Reason : CP Blood Pressure : */* mmHG Vent. Rate : 94 BPM Atrial Rate : 94 BPM P-R Int : 116 ms QRS Dur : 76 ms QT Int : 348 ms P-R-T Axes : 81 87 70 degrees QTcB Int : 435 ms Normal sinus rhythm Possible Left atrial enlargement Nonspecific ST and T wave abnormality Abnormal ECG No previous ECGs available Referred By: Yeimy Matthews Electronically Signed By: MILLA DOMINGUEZ
--- NOTE | 2024-07-18 16:31 | ED_ITS ---
HPI - General Adult General Chief complaint: Abdominal Pain Stated complaint: Abd pain Time Seen by Provider: 07/18/24 18:03 Source: patient Limitations: no limitations History of Present Illness ED Provider: Barbara Matias PA-C HPI narrative: 38-year-old female presents with the acute onset abdominal pain. Patient states after eating this morning, she developed severe upper abdominal discomfort with radiation to her mid back. Associated nausea vomiting. Denies fever or diarrhea. Patient has not had similar episodes in the past. Related Data Previous Rx's ?Medication ?Instructions ?Recorded meloxicam 15 mg tablet 15 mg PO DAILY 30 days #30 tabs 11/04/21 prednisone 20 mg tablet 40 mg (2 x 20 mg) PO DAILY 4 days 11/04/21 #8 tabs docusate sodium 100 mg capsule 100 mg PO BID #20 caps 03/12/23 hydrocortisone 1 %-pramoxine 1 % 1 appl [place] QID PRN hemorrhoids #10 03/12/23 rectal foam (Proctofoam HC) grams Allergies Allergy/AdvReac Type Severity Reaction Status Date / Time codeine [CODEINE] Allergy Intermediate HIVES Verified 07/18/24 16:30 clindamycin [CLINDAMYCIN] Allergy Mild HIVES Verified 07/18/24 16:30 vancomycin [VANCOMYCIN] Allergy Mild HIVES Verified 07/18/24 16:30 venlafaxine Allergy Mild VOMITS Verified 07/18/24 16:30 Clindamycin HCl Allergy Unknown hives Uncoded 09/03/23 22:20 Effexor AdvReac Unknown vomiting Uncoded 09/03/23 22:20 Review of Systems 2 Review of Systems: Yes all other systems are reviewed and are negative Constitutional: Constitutional: Denies fatigue and Denies fever(s) Cardiovascular: Cardiovascular: Denies chest pain and Denies dyspnea Respiratory: Respiratory: Denies cough and Denies dyspnea Gastrointestinal: Gastrointestinal: Reports abdominal pain, Denies diarrhea, Reports nausea and Reports vomiting Endocrine: Endocrine: Denies fatigue PMFSH Past Medical History Attestation statement: The following information was validated with the patient. Social History Social History (System 03/04/22 @ 08:34 by Gina Galindo) Unable to assess alcohol history related to: Unknown Advance Directives: No Advance Directives Information Provided: Yes Physical Exam ED Vital Signs: Vital Signs - 24 hr 07/18/24 16:26 07/18/24 17:51 07/18/24 19:26 Temperature 98.5 F 97.8 F Pulse Rate 120 H 89 Respiratory Rate 20 16 14 Blood Pressure 142/97 H 143/73 H Pulse Oximetry 96 100 Oxygen Delivery Method Room Air 07/18/24 20:00 07/18/24 22:00 07/18/24 23:17 Temperature 97.3 F 98.3 F Pulse Rate 55 60 Respiratory Rate 16 16 14 Blood Pressure 117/79 122/79 Pulse Oximetry 100 99 Oxygen Delivery Method Room Air Room Air 07/19/24 03:17 07/19/24 03:18 Temperature 97.8 F Pulse Rate 60 Respiratory Rate 18 17 Blood Pressure 128/79 Pulse Oximetry 98 Oxygen Delivery Method Room Air BMI result Body Mass Index 19.6 Const Other: Alert, appears very uncomfortable, tearful at times Orientation/consciousness: patient oriented x3 Resp Effort & Inspection: normal respiratory effort Cardio Other: Normal peripheral perfusion GI Other: Abdomen is soft, nondistended, moderate to severe tenderness epigastric, and most prominent over right upper quadrant with moderate involuntary guarding Skin Other: Warm dry no rash Neuro General: patient oriented x3, gait normal, no focal motor deficits and CN's II- XI intact bilaterally Psych Other: Cooperative Course Course Course Narrative: 07/18/24 1631 BUTCH [place] This is a Rapid Medical Examination (RME) performed by Jimenez Matthews PA-C in triage. Full HPI, ROS, assessment and treatment plan per primary provider in the Main ED. Hx: 38 yo F here for eval of epigastric abd pain which began approx 1 hour ago after eating lunch. pain has been intensifying, radiating to her back and up into her chest. 10/10 pain at present. reports initially thinking she had a gas bubble . states this does not feel like acid reflux. reports vaping. does not smoke cigarettes. no recent travel/ long car rides. no ocp use. denies etoh consumption. PE/vitals: tachycardic, uncomfortable appearing Plan: labs, ekg, cxr Consultations Consultation #1: per Nemo Parson PA-C from surgical service.... She feels the patient does not fit the clinical picture for cholecystitis, especially acalculous cholecystitis, she should just a CT scan, I am ordering a CT and repeating LFTs Time: 22:24 Consultation #2: per Nemo Parson PA-C from surgical service..surgical service will be admitting the patient after I relayed CT findings Time: 02:35 Medications Administered Discontinued Medications Generic Name Dose Route Start Last Admin Trade Name Nazarioq PRN Reason Stop Dose Admin Famotidine 20 mg 07/18/24 19:13 07/18/24 19:27 Famotidine/Pf 20 Mg/2 Ml Vial IVPUSH 07/18/24 19:14 20 mg ONCE ONE Administration Sodium Chloride 1,000 mls @ 999 mls/hr 07/18/24 19:15 07/18/24 22:42 Ns IV 07/18/24 20:15 Infused .Q1H1M CANDIS Infusion Iohexol 85 ml 07/18/24 23:44 07/18/24 23:45 Iohexol 350 Mg/Ml 100 Ml Infus..Btl IV 07/18/24 23:45 85 ml ONCE ONE Administration Morphine Sulfate 4 mg 07/18/24 19:18 07/18/24 19:26 Morphine Sulfate 4 Mg/Ml Cartridge IVPUSH 07/18/24 19:19 4 mg ONCE ONE Administration Protocol Morphine Sulfate 4 mg 07/18/24 22:48 07/18/24 23:17 Morphine Sulfate 4 Mg/Ml Cartridge IVPUSH 07/18/24 22:49 4 mg ONCE ONE Administration Protocol Morphine Sulfate 4 mg 07/19/24 02:30 07/19/24 03:17 Morphine Sulfate 4 Mg/Ml Cartridge IVPUSH 07/19/24 02:31 4 mg ONCE ONE Administration Protocol Ondansetron HCl 4 mg 07/18/24 19:18 07/18/24 19:26 Ondansetron Hcl 4 Mg/2 Ml Vial IVPUSH 07/18/24 19:19 4 mg ONCE ONE Administration Ondansetron HCl 4 mg 07/18/24 22:48 07/18/24 23:18 Ondansetron Hcl 4 Mg/2 Ml Vial IVPUSH 07/18/24 22:49 4 mg ONCE ONE Administration Ondansetron HCl 4 mg 07/19/24 02:30 07/19/24 03:17 Ondansetron Hcl 4 Mg/2 Ml Vial IVPUSH 07/19/24 02:31 4 mg ONCE ONE Administration Sucralfate 1 gm 07/18/24 19:13 07/18/24 19:25 Sucralfate Oral Suspension 1 Gm/10 Ml Oral.Susp PO 07/18/24 19:14 1 gm ONCE ONE Administration Medical Decision Making Medical Decision Making MDM Narrative: 38-year-old female with a history of chronic constipation presents with the acute onset abdominal pain. Patient states after eating this morning, she developed severe upper abdominal discomfort with radiation to her mid back. Associated nausea vomiting. Denies fever or diarrhea. Patient has not had similar episodes in the past. Problem: Constipation History: Per patient I have considered the following differential diagnoses: Biliary colic, cholecystitis, gastritis/GERD, pancreatitis, constipation Plan: Screening labs obtained, including LFTs, labs are unremarkable. The patient has known chronic constipation, this could be poorly controlled GERD exacerbated by constipation. We will give fluid, Zofran, famotidine, Carafate and obtain a KUB. Also can considering underlying biliary pathology given the nature of her symptoms and exam findings. Adding on an ultrasound of the right upper quadrant. We will be adding on morphine for her pain. I have independently reviewed the following tests: Labs: No leukocytosis, not anemic, no electrolyte abnormality, LFTs normal, not , repeat LFTs remain unchanged Ultrasound right upper quadrant: MPRESSION: 1. No gallbladder stones or sludge. There is a positive sonographic Vicente sign with gallbladder wall thickening. The possibility of acalculous cholecystitis is raised. 2. No significant biliary ductal dilatation. 3. Trace perihepatic ascites. KUB:Number of film(s): 2 obtained upright. No abnormal bowel dilatation. Mild amount of retained stool in the colon. No free air beneath the diaphragm. No radiopaque foreign body. No pathologic calcification. There are several pelvic phleboliths. No acute osseous abnormality. Impression: 1. Nonspecific and nonobstructive bowel gas pattern. CT bad: MPRESSION: 1. Pericholecystic and periportal edema of uncertain etiology. Differential could include sequela of rapid infusion of IV fluids, or hepatitis/cholecystitis. 2. Large amount of stool in the proximal colon. No bowel obstruction. 3. Left uterine fibroid. Follow-up as needed. Lab Data 07/18/24 16:41 07/18/24 16:41 Labs: Lab Results 07/18/24 07/19/24 Range/Units 16:41 00:58 WBC 9.9 (4.8-10.8) X10*3/uL RBC 4.21 (4.20-5.50) X10*6/uL Hgb 13.5 (12.0-16.0) g/dl Hct 39.0 (37.0-47.0) % MCV 92.6 (80.0-98.0) fL MCH 32.1 (27.0-33.0) pg MCHC 34.6 (31.0-35.0) g/dl RDW 13.0 (11.0-16.0) % Plt Count 305 (160-400) X10*3/uL MPV 9.5 (9.4-12.3) fL Immature Gran % (Auto) 0.3 (0.0-0.4) % Neut % (Auto) 65.9 (45-73) % Lymph % (Auto) 23.4 (20-40) % [place] % (Auto) 7.0 (2-11) % Eos % (Auto) 2.8 (0-4) % Baso % (Auto) 0.6 (0-2) % Lymph # (Auto) 2.3 (1.2-4.9) X10*3/uL [place] # (Auto) 0.7 (0.1-1.2) X10*3/uL Eos # (Auto) 0.3 (0.0-0.4) X10*3/uL Baso # (Auto) 0.1 (0.0-0.2) X10*3/uL Abs Immat Gran (auto) 0.03 (0.00-0.03) X10*3/uL Absolute Neuts (auto) 6.5 (2.0-8.3) x10*3/uL Absolute Nucleated RBC 0.000 (0.0-0.012) X10*3/uL Nucleated RBC % (auto) 0.0 (0.0-0.2) /100WBC Sodium 140 (135-145) mmol/L Potassium 3.9 (3.3-5.1) mmol/L Chloride 107 (96-108) mmol/L Carbon Dioxide 27 (22-29) mmol/L Anion Gap 10 L (12-20) BUN 10 (9-16) mg/dL Creatinine 0.71 (0.5-1.4) mg/dL Estim Creat Clear Calc 83.5 Estimated GFR > 60 Random Glucose 93 (60-115) mg/dL Calcium 9.2 (8.4-10.2) mg/dL Magnesium 2.1 (1.6-2.6) mg/dL Total Bilirubin 0.5 0.6 (0.0-1.0) mg/dL Direct Bilirubin 0.1 0.2 (0.0-0.5) mg/dL AST 20 19 (5-31) U/L ALT 16 14 (0-31) U/L Alkaline Phosphatase 42 37 L (39-117) U/L Troponin I High Sens < 2.7 (<3.5-17.0) ng/L Total Protein 6.9 5.8 L (6.5-8.0) g/dL Albumin 4.5 3.7 (3.5-5.0) g/dL Lipase 27 (8-78) U/L Beta HCG, Quant < 2 mIU/mL Discharge Plan Discharge Clinical Impression: Acute acalculous cholecystitis Patient Disposition: Admitted As Inpatient Prescriptions: No Action docusate sodium 100 mg capsule 100 mg PO BID Qty: 20 0RF Proctofoam HC 1-1 % foam 1 appl [place] QID PRN (Reason: hemorrhoids) Qty: 10 0RF prednisone 20 mg tablet 40 mg PO DAILY 4 Days Qty: 8 0RF meloxicam 15 mg tablet 15 mg PO DAILY 30 Days Qty: 30 2RF Print Language: Armenian
[2024-07-18 16:45] LABS: MANUAL DIFF FLAG NO
[2024-07-18 16:46] LABS: Basophils Absolute Auto 0.1 X10*3/uL (0.0-0.2); Basophils Percent Auto 0.6 % (0-2); Eosinophils Absolute Auto 0.3 X10*3/uL (0.0-0.4); Eosinophils Percent Auto 2.8 % (0-4); Hemoglobin 13.5 g/dl (12.0-16.0); Imm Gran Abs Auto 0.03 X10*3/uL (0.00-0.03); Imm Gran Pct Auto 0.3 % (0.0-0.4); Lymphocytes Absolute Auto 2.3 X10*3/uL (1.2-4.9); Lymphocytes Percent Auto 23.4 % (20-40); Mean Corpuscular HGB Conc 34.6 g/dl (31.0-35.0); Mean Corpuscular Hemoglobin 32.1 pg (27.0-33.0); Mean Corpuscular Volume 92.6 fL (80.0-98.0); Mean Platelet Volume 9.5 fL (9.4-12.3); Monocytes Absolute Auto 0.7 X10*3/uL (0.1-1.2); Neutrophils Absolute Auto 6.5 x10*3/uL (2.0-8.3); Neutrophils Percent Auto 65.9 % (45-73); Platelet Count 305 X10*3/uL (160-400); Red Blood Count 4.21 X10*6/uL (4.20-5.50); White Blood Count 9.9 X10*3/uL (4.8-10.8)
[2024-07-18 17:08] LABS: Alanine Aminotransferase 16 U/L (0-31); Albumin Level 4.5 g/dL (3.5-5.0); Alkaline Phosphatase 42 U/L (39-117); Anion Gap 10 (12-20); Aspartate Amino Transferase 20 U/L (5-31); Bilirubin Total 0.5 mg/dL (0.0-1.0); Blood Urea Nitrogen 10 mg/dL (9-16); Calcium 9.2 mg/dL (8.4-10.2); Carbon Dioxide 27 mmol/L (22-29); Chloride 107 mmol/L (96-108); Creatinine Clr Calc Pharmacy 83.5; Estimated Glomerular Filt Rate > 60; Glucose Random 93 mg/dL (60-115); Lipase 27 U/L (8-78); Magnesium 2.1 mg/dL (1.6-2.6); Potassium 3.9 mmol/L (3.3-5.1); Sodium 140 mmol/L (135-145); Total Protein 6.9 g/dL (6.5-8.0)
[2024-07-18 17:11] LABS: HCG Quantitative < 2 mIU/mL; Troponin-I High Sensitivity < 2.7 ng/L (<3.5-17.0)
[2024-07-18 17:51] VITALS: BP 143/73; PULSE 89; RESP 16; TEMP 36.6; O2SAT 100
--- NOTE | 2024-07-18 18:09 | PC.NURSE ---
Addendum entered by Christel Chang RN 07/18/24 18:12: patient states pain is worse when laying down. Original Note: patient presents with chest pain/upper epigastric pain since 1030am. patient states the pain started after she ate lunch, patient states she ate a burger. patient states the pain is 10/10 and has been constant with intermittent sharp pains in between. IV placed in RAC #20. patient placed on tele monitor, patient in normal sinus rhythm rate 90s.
--- NOTE | 2024-07-18 19:10 | PC.NURSE ---
assumed care of pt. Pt states she is in a lot of pain. 10/10 on numeric scale, upper stomach and radiating to the back. waiting for Ed provider
[2024-07-18] MEDS: Sucralfate Oral Suspension 1 GM/10 ML ORAL.SUSP PO (19:25)
[2024-07-18 19:26] VITALS: RESP 14
[2024-07-18] MEDS: Morphine Sulfate 4 MG/ML CARTRIDGE IVPUSH ×2 (19:26→23:17)
[2024-07-18] MEDS: ondansetron HCL 4 MG/2 ML VIAL IVPUSH ×2 (19:26→23:18)
[2024-07-18] MEDS: Famotidine/PF 20 MG/2 ML VIAL IVPUSH (19:27)
[2024-07-18] MEDS: 0.9 % Sodium Chloride 1,000 ML 999 ML IV (19:27)
--- NOTE | 2024-07-18 19:28 | PC.NURSE ---
pt medicated per mat at this time, awaiting us.
[2024-07-18 20:00] VITALS: BP 117/79; PULSE 55; RESP 16; TEMP 36.3; O2SAT 100
[2024-07-18 22:00] VITALS: BP 122/79; PULSE 60; RESP 16; TEMP 36.8; O2SAT 99
[2024-07-18 23:17] VITALS: RESP 14
[2024-07-18] MEDS: iohexoL 350 MG/ML 100 ML INFUS..BTL 85 ML IV (23:45)
[2024-07-19] VITALS (8 sets, daily range): BP systolic 98–130; BP diastolic 51–79; PULSE 50–70; RESP 14–22; TEMP 36.6–36.9; O2SAT 96–100
[2024-07-19 00:04] LABS: Bilirubin Direct 0.1 mg/dL (0.0-0.5)
[2024-07-19 01:20] LABS: Alanine Aminotransferase 14 U/L (0-31); Albumin Level 3.7 g/dL (3.5-5.0); Alkaline Phosphatase 37 U/L (39-117); Aspartate Amino Transferase 19 U/L (5-31); Bilirubin Direct 0.2 mg/dL (0.0-0.5); Bilirubin Total 0.6 mg/dL (0.0-1.0); Total Protein 5.8 g/dL (6.5-8.0)
[2024-07-19] MEDS: ondansetron HCL 4 MG/2 ML VIAL IVPUSH ×3 (03:17→14:58)
[2024-07-19] MEDS: Morphine Sulfate 4 MG/ML CARTRIDGE IVPUSH (03:17)
--- NOTE | 2024-07-19 03:18 | PC.NURSE ---
pt medicated per apr for 810 abdominal pain and nausea. pt states she had one episode of vomiting.
[2024-07-19 03:42] LABS: MANUAL DIFF FLAG NO
[2024-07-19 03:46] LABS: Basophils Absolute Auto 0.1 X10*3/uL (0.0-0.2); Basophils Percent Auto 0.8 % (0-2); Eosinophils Absolute Auto 0.4 X10*3/uL (0.0-0.4); Hematocrit 36.4 % (37.0-47.0); Hemoglobin 12.7 g/dl (12.0-16.0); Imm Gran Abs Auto 0.02 X10*3/uL (0.00-0.03); Imm Gran Pct Auto 0.2 % (0.0-0.4); Lymphocytes Absolute Auto 2.6 X10*3/uL (1.2-4.9); Lymphocytes Percent Auto 30.9 % (20-40); Mean Corpuscular HGB Conc 34.9 g/dl (31.0-35.0); Mean Corpuscular Hemoglobin 32.1 pg (27.0-33.0); Mean Corpuscular Volume 91.9 fL (80.0-98.0); Mean Platelet Volume 9.4 fL (9.4-12.3); Monocytes Absolute Auto 0.7 X10*3/uL (0.1-1.2); Monocytes Percent Auto 7.9 % (2-11); Neutrophils Absolute Auto 4.6 x10*3/uL (2.0-8.3); Neutrophils Percent Auto 55.2 % (45-73); Platelet Count 252 X10*3/uL (160-400); Red Blood Count 3.96 X10*6/uL (4.20-5.50); Red Cell Distribution Width 13.2 % (11.0-16.0); White Blood Count 8.4 X10*3/uL (4.8-10.8)
[2024-07-19] MEDS: Piperacillin Sodium/Tazobactam 3.375 GM in 0.9 % Sodium Chloride 50 ML IV ×2 (03:54→11:00)
[2024-07-19] MEDS: Dextrose 5 % and 0.45 % NaCl 1,000 ML 100 ML IVCONT ×2 (03:54→19:15)
[2024-07-19] MEDS: Pantoprazole Sodium 40 MG/10 ML VIAL IVPUSH ×2 (03:54→16:11)
--- NOTE | 2024-07-19 04:02 | PC.NURSE ---
administered medication per MAR.
[2024-07-19 04:22] LABS: Lactic Acid 0.7 mmol/L (0.5-2.0)
--- NOTE | 2024-07-19 06:11 | P.HPGS_ITS ---
History of Present Illness History of Present Illness Date of Service: 07/19/24 <Nemo Parson PA-C - Last Filed: 07/19/24 08:59> 07/19/24 <Jose Fiore MD - Last Filed: 07/19/24 10:46> Chief complaint: Acute Cholecystitis <Nemo Parson PA-C - Last Filed: 07/19/24 08:59> Narrative: Fiordaliza Sams is a 38 year old female with no significant PMH who presented to the ED for evaluation of abdominal pain. She reports she had acute onset of epigastric abdominal pain yesterday after eating at work. The pain was severe and sharp in nature and radiated to her upper mid back. The pain was associated with nausea and multiple episodes of vomiting. Due to the severity of pain, she presented to the ED for evaluation. Work up included CBC, BMP, LFTs which were all WNL. Vitals were WNL. ABD US and CT scan were obtained which showed no gallbladder stones or sludge but mild gallbladder wall thickening with positive sonographic Vicente sign with gallbladder wall thickening, raising concern for acalculous cholecystitis. She continues to have severe epigastric pain this morning, relieved by analgesics. She continues to feel nauseous and is dry heaving. She denies prior episodes of similar pain. She denies fever, chills, hematemesis, melena, hematochezia, diarrhea, constipation, dysuria, hematuria. She denies any NSAID or significant alcohol use. <Nemo Parson PA-C - Last Filed: 07/19/24 08:59> Review of Systems Review of Systems: Yes all other systems are reviewed and are negative <Nemo Parson PA-C - Last Filed: 07/19/24 08:59> [facility] Surgical History Surgical History: Surgical History Hx of rhinoplasty Hx of tonsillectomy <Nemo Parson PA-C - Last Filed: 07/19/24 08:59> Social History Social History: Social History (System 03/04/22 @ 08:34 by Gina Galindo) Household Members: Children Housing: Apartment Do you presently have visiting nurse or other home services: No Unable to assess alcohol history related to: Unknown Patient Tobacco Use Status: Current everyday Tobacco user Tobacco use type: Smokeless Tobacco e-Cigarette/Vaping Use: Former Use Patient Interested in Nicotine Replacement: No Have you been hit, kicked, punched, or otherwise hurt by someone within the past year? If so, by whom?: No Do you feel safe in your current relationship?: No Current Relationship Is there a partner from a previous relationship who is making you feel unsafe now?: No Are you made to feel afraid or neglected: No Advance Directives: No Advance Directives Information Provided: Yes Do you have a plan to hurt others: No Plan Recently lost weight without trying: No Eating poorly because of decreased appetite: No Nutrition Risks: No Nutritional Risk Patient : No : No Poor oral hygiene: No <Nemo Parson PA-C - Last Filed: 07/19/24 08:59> Meds Allergies/Adverse reactions: Allergies Allergy/AdvReac Type Severity Reaction Status Date / Time codeine [CODEINE] Allergy Intermediate HIVES Verified 07/18/24 16:30 clindamycin [CLINDAMYCIN] Allergy Mild HIVES Verified 07/18/24 16:30 vancomycin [VANCOMYCIN] Allergy Mild HIVES Verified 07/18/24 16:30 venlafaxine Allergy Mild VOMITS Verified 07/18/24 16:30 Clindamycin HCl Allergy Unknown hives Uncoded 09/03/23 22:20 Effexor AdvReac Unknown vomiting Uncoded 09/03/23 22:20 <Nemo Parson PA-C - Last Filed: 07/19/24 08:59> Active Medications: Current Medications Acetaminophen (Acetaminophen 325 Mg Tablet) 650 mg PO Q6H PRN PRN Reason: Pain, Mild 1-3,fever,headache Calcium Carbonate (Calcium Carbonate 750 Mg Tab.Chew) 750 mg PO Q4H PRN PRN Reason: Heartburn Docusate Sodium (Docusate Sodium 100 Mg Capsule) 100 mg PO BID CANDIS Hydromorphone HCl (Hydromorphone Hcl 1 Mg/Ml Syringe) 0.5 mg IVPUSH Q4H PRN; Protocol PRN Reason: Pain, Severe (Pain Scale 7-10) Dextrose/Sodium Chloride (D51/2ns) 1,000 mls @ 100 mls/hr IVCONT .Q10H [facility] Last Admin: 07/19/24 03:54 Dose: 100 mls/hr Piperacillin Sod/Tazobactam (Sod 3.375 gm/ Sodium Chloride) 50 mls @ 100 mls/hr IV Q6H [facility] Last Infusion: 07/19/24 04:35 Dose: Infused Magnesium Hydroxide (Milk Of Magnesia 30 Ml Oral.Susp) 30 ml PO DAILY PRN PRN Reason: Constipation Melatonin (Melatonin 3 Mg Tablet) 6 mg PO BEDTIME PRN PRN Reason: Insomnia Metoclopramide HCl (Metoclopramide Hcl 10 Mg/2 Ml Vial) 10 mg IVPUSH Q6H PRN PRN Reason: Nausea and Vomiting Ondansetron HCl (Ondansetron Hcl 4 Mg/2 Ml Vial) 4 mg IVPUSH Q8H PRN PRN Reason: Nausea and Vomiting Oxycodone HCl (Oxycodone Hcl Immed Release 5 Mg Tablet) 5 mg PO Q4H PRN PRN Reason: Pain, Moderate(Pain Scale 4-6) Pantoprazole Sodium (Pantoprazole Sodium 40 Mg/10 Ml Vial) 40 mg IVPUSH BID@0630,1630 [facility] Last Admin: 07/19/24 03:54 Dose: 40 mg Sodium Chloride (0.9 % Sodium Chloride Flush 3 Ml Syringe) [address] [facility] <MO Khanna Last Filed: 07/19/24 08:59> Home medications: Home Medications ?Medication ?Instructions ?Recorded ?Confirmed ?Last Taken ?Type No Known Home Meds 07/19/24 07/19/24 Unknown History <MO Khanna Last Filed: 07/19/24 08:59> Physical Exam Vital Signs: Vital Signs: Last Vital Signs Temp 97.9 F 07/19/24 05:20 Pulse 50 07/19/24 05:20 Resp 14 07/19/24 05:20 BP 111/70 07/19/24 05:20 Pulse Ox 99 07/19/24 05:20 O2 Del Method Room Air 07/19/24 05:20 BMI result Body Mass Index 19.6 <MO Khanna Last Filed: 07/19/24 08:59> Const: Other: uncomfortable appearing <Nemo CarterdeauROVERTODia Perez Last Filed: 07/19/24 08:59> General: no acute distress and alert <Nemo PalbodeauROVERTODia Perez Last Filed: 07/19/24 08:59> Nutritional Appearance: thin <Nemo PalbodeauBUTCHSagar Perez Last Filed: 07/19/24 08:59> Orientation/consciousness: patient oriented x3 <Nemo PalBUTCH ramosSagar Perez Last Filed: 07/19/24 08:59> Resp: Effort & Inspection: normal respiratory effort <Nemo PalbodeauBUTCHSagar Perez Last Filed: 07/19/24 08:59> GI: Inspection: Yes normal to inspection and No distended <Nemo CarterdeauBUTCHSagar Perez Last Filed: 07/19/24 08:59> Palpation (GI): Soft to palpation, Tenderness to palpation present (GI) (moderate epigastric) in the RUQ; Vicente's sign negative, no guarding and not rigid <Nemo PalROVERTO ramosDia Perez Last Filed: 07/19/24 08:59> Skin: General skin exam: no rashes or lesions noted and no jaundice <Nemo PalBUTCH ramosSagar Perez Last Filed: 07/19/24 08:59> Neuro: General: patient oriented x3 and moves all extremities <Nemo BlankBUTCH ramosSagar Perez Last Filed: 07/19/24 08:59> Results Results Labs: Short CBC 07/18/24 07/19/24 Range/Units 16:41 03:32 WBC 9.9 8.4 (4.8-10.8) X10*3/uL Hgb 13.5 12.7 (12.0-16.0) g/dl Hct 39.0 36.4 L (37.0-47.0) % Plt Count 305 252 (160-400) X10*3/uL BMP 07/18/24 16:41 Sodium 140 Potassium 3.9 Chloride 107 Carbon Dioxide 27 BUN 10 Creatinine 0.71 Calcium 9.2 Liver Function 07/18/24 07/19/24 Range/Units 16:41 00:58 Total Bilirubin 0.5 0.6 (0.0-1.0) mg/dL Direct Bilirubin 0.1 0.2 (0.0-0.5) mg/dL AST 20 19 (5-31) U/L ALT 16 14 (0-31) U/L Alkaline Phosphatase 42 37 L (39-117) U/L Albumin 4.5 3.7 (3.5-5.0) g/dL <Nemo Parson PA-C - Last Filed: 07/19/24 08:59> Abdomen CT scan report/results: report reviewed <Nemo Parson PA-C Ana Last Filed: 07/19/24 08:59> Abdominal ultrasound report/results: report reviewed and image reviewed <MO Khanna Last Filed: 07/19/24 08:59> Assessment and Plan (1) Epigastric abdominal pain: Status: Acute <MO Khanna Last Filed: 07/19/24 08:59> 38 year old female with no significant PMH who presented to the ED with complaints of acute onset of epigastric abd pain with ABD US and CT showing thickened gallbladder wall without stones or sludge. She has no leukocytosis and WBC count remains normal this morning. She was admitted for possible acalculous cholecystitis and intractable abd pain. She was started on IV zosyn, IVF and PRN analgesics. She is non toxic but uncomfortale appearing, hemodynamically stable. HIDA scan was ordered to further evaluate for acute cholecystitis. Further plan dependent on scan. Discussed proceeding with laparoscopic cholecystectomy, possible open if HIDA is positive. She understands and agrees with plan. <Nemo Parson PA-C - Last Filed: 07/19/24 08:59> 38 year old female with no significant PMH who presented to the ED with complaints of acute onset of epigastric abd pain with ABD US and CT showing thickened gallbladder wall without stones or sludge. She has no leukocytosis and WBC count remains normal this morning. She was admitted for possible acalculous cholecystitis and intractable abd pain. She was started on IV zosyn, IVF and PRN analgesics. She is non toxic but uncomfortale appearing, hemodynamically stable. HIDA scan was ordered to further evaluate for acute cholecystitis. Further plan dependent on scan. Discussed proceeding with laparoscopic cho lecystectomy, possible open if HIDA is positive. She understands and agrees with plan. Patient seen and examined and agree with the above assessment and plan. Agree with obtaining a HIDA scan to clarify source of abdominal pain. <Jose Fiore MD - Last Filed: 07/19/24 10:46> Quality Stroke Does the patient have a stroke diagnosis?: No <Nemo Parson PA-C - Last Filed: 07/19/24 08:59> VTE Prior VTE?: No <Nemo Parson PA-C - Last Filed: 07/19/24 08:59> VTE Risk Level:: Surgical - low <Nemo Parson PA-C - Last Filed: 07/19/24 08:59> VTE Device Contraindication: N/A - Device Ordered <Nemo Parson PA-C - Last Filed: 07/19/24 08:59> VTE Drug Contraindication: Treatment Not Indicated <Nemo Parson PA-C - Last Filed: 07/19/24 08:59> Procedures Date of Service Date of Service: 07/19/24 <Nemo Parson PA-C - Last Filed: 07/19/24 08:59> 07/19/24 <Jose Fiore MD - Last Filed: 07/19/24 10:46>
[2024-07-19] MEDS: HYDROmorphone HCl 1 MG/ML SYRINGE 0.5 MG IVPUSH ×3 (07:15→18:30)
[2024-07-19] MEDS: 0.9 % Sodium Chloride Flush 3 ML SYRINGE IVFLUSH ×2 (07:19→15:01)
--- NOTE | 2024-07-19 08:39 | PHA.MEDREC ---
Pharmacy Consult ? Medication Reconciliation Pharmacy has completed the medication reconciliation. Per patient, she does not take any medications at home.
[2024-07-19] MEDS: Metoclopramide HCl 10 MG/2 ML VIAL IVPUSH ×2 (10:52→18:32)
[2024-07-19] MEDS: Docusate Sodium 100 MG CAPSULE PO ×2 (10:52→20:46)
[2024-07-20] VITALS (10 sets, daily range): BP systolic 92–136; BP diastolic 30–72; PULSE 51–70; RESP 14–20; TEMP 36.4–36.8; O2SAT 98–100
[2024-07-20] MEDS: ondansetron HCL 4 MG/2 ML VIAL IVPUSH (00:03)
[2024-07-20] MEDS: HYDROmorphone HCl 1 MG/ML SYRINGE 0.5 MG IVPUSH ×2 (00:07→06:09)
[2024-07-20] MEDS: Dextrose 5 % and 0.45 % NaCl 1,000 ML 100 ML IVCONT (05:15)
[2024-07-20] MEDS: Metoclopramide HCl 10 MG/2 ML VIAL IVPUSH (05:20)
[2024-07-20] MEDS: Pantoprazole Sodium 40 MG/10 ML VIAL IVPUSH (06:04)
--- NOTE | 2024-07-20 07:50 | P.PNGS_ITS ---
Subjective Subjective Date of Service: 07/20/24 <Nemo Parson PA-C - Last Filed: 07/20/24 08:06> 07/20/24 <Jose Fiore MD - Last Filed: 07/20/24 08:16> Interval history: Overall feels better this morning. Abd pain significantly improved. < Nemo Parson PA-C - Last Filed: 07/20/24 08:06> Physical Exam 2 Vital Signs: Vital Signs: Last Vital Signs Temp 98.2 F 07/20/24 03:32 Pulse 62 07/20/24 03:32 Resp 18 07/20/24 03:32 BP 105/60 07/20/24 03:32 Pulse Ox 100 07/20/24 03:32 O2 Del Method Room Air 07/20/24 03:32 BMI result Body Mass Index 19.6 <Nemo Parson PA-C - Last Filed: 07/20/24 08:06> Const: General: comfortable, no acute distress and alert <Nemo Parson PA-C - Last Filed: 07/20/24 08:06> Resp: Effort & Inspection: normal respiratory effort <MO Khanna Last Filed: 07/20/24 08:06> GI: Palpation (GI): Soft to palpation, Tenderness to palpation present (GI) (very mild RUQ) and no guarding <Nemo Parson PA-C - Last Filed: 07/20/24 08:06> Skin: General skin exam: no rashes or lesions noted and jaundice <MO Khanna Last Filed: 07/20/24 08:06> Objective Data Active Medications Acetaminophen (Acetaminophen 325 Mg Tablet) 650 mg PO Q6H PRN PRN Reason: Pain, Mild 1-3,fever,headache Calcium Carbonate (Calcium Carbonate 750 Mg Tab.Chew) 750 mg PO Q4H PRN PRN Reason: Heartburn Cefotetan Disodium (Cefotetan Disodium 2 Gm Vial) 2 gm IVPUSH ONCE ONE Stop: 07/20/24 14:31 Docusate Sodium (Docusate Sodium 100 Mg Capsule) 100 mg PO BID CANDIS Last Admin: 07/19/24 20:46 Dose: 100 mg Documented By: CANDIDA Hydromorphone HCl (Hydromorphone Hcl 1 Mg/Ml Syringe) 0.5 mg IVPUSH Q4H PRN; Protocol PRN Reason: Pain, Severe (Pain Scale 7-10) Last Admin: 07/20/24 06:09 Dose: 0.5 mg Documented By: SALLY Dextrose/Sodium Chloride (D51/2ns) 1,000 mls @ 100 mls/hr IVCONT .Q10H [facility] Last Admin: 07/20/24 05:15 Dose: 100 mls/hr Documented By: CANDIDA Magnesium Hydroxide (Milk Of Magnesia 30 Ml Oral.Susp) 30 ml PO DAILY PRN PRN Reason: Constipation Melatonin (Melatonin 3 Mg Tablet) 6 mg PO BEDTIME PRN PRN Reason: Insomnia Metoclopramide HCl (Metoclopramide Hcl 10 Mg/2 Ml Vial) 10 mg IVPUSH Q6H PRN PRN Reason: Nausea and Vomiting Last Admin: 07/20/24 05:20 Dose: 10 mg Documented By: CANDIDA Ondansetron HCl (Ondansetron Hcl 4 Mg/2 Ml Vial) 4 mg IVPUSH Q8H PRN PRN Reason: Nausea and Vomiting Last Admin: 07/20/24 00:03 Dose: 4 mg Documented By: CANDIDA Oxycodone HCl (Oxycodone Hcl Immed Release 5 Mg Tablet) 5 mg PO Q4H PRN PRN Reason: Pain, Moderate(Pain Scale 4-6) Pantoprazole Sodium (Pantoprazole Sodium 40 Mg/10 Ml Vial) 40 mg IVPUSH BID@0630,1630 [facility] Last Admin: 07/20/24 06:04 Dose: 40 mg Documented By: SALLY Sodium Chloride (0.9 % Sodium Chloride Flush 3 Ml Syringe) 3 ml IVFLUSH QSHIFT [facility] Last Admin: 07/20/24 07:08 Dose: Not Given Documented By: ELIANE Non-Admin Reason: IV Running <Nemo Parson PA-C - Last Filed: 07/20/24 08:06> Labs CBC & Chem 7: 07/19/24 03:32 07/18/24 16:41 <Nemo Parson PA-C - Last Filed: 07/20/24 08:06> Microbiology Microbiology Results: Microbiology 07/19/24 03:36 Blood Culture - Preliminary Blood - Venous No growth after 24 hours. 07/19/24 03:32 Blood Culture - Preliminary Blood - Venous No growth after 24 hours. <Nemo Parson PA-C - Last Filed: 07/20/24 08:06> Procedures Date of Service Date of Service: 07/20/24 <Nemo Parson PA-C - Last Filed: 07/20/24 08:06> 07/20/24 <Jose Fiore MD - Last Filed: 07/20/24 08:16> Progress Note: A&P Assessment and plan (1) Biliary dyskinesia: Status: Acute <Nemo Parson PA-C - Last Filed: 07/20/24 08:06> Assessment and Plan: HIDA shows no evidence of cystic duct obstruction or acute cholecystitis, low gallbladder ejection fraction, consistent with biliary dyskinesia. Again discussed proceeding with laparoscopic cholecystectomy, possible open today. She is in agreement and on the schedule for today. She did express the desire to go home later today following procedure. <Nemo Parson PA-C - Last Filed: 07/20/24 08:06> HIDA shows no evidence of cystic duct obstruction or acute cholecystitis, low gallbladder ejection fraction, consistent with biliary dyskinesia. Again discussed proceeding with laparoscopic cholecystectomy, possible open today. She is in agreement and on the schedule for today. She did express the desire to go home later today following procedure. Patient seen and examined this morning. Reviewed the results of the HIDA scan as well. Study reveals biliary dyskinesia/chronic cholecystitis which may explain the patient's current symptoms. I reviewed the procedure, risks, and alternatives regarding laparoscopic or possible open cholecystectomy and she gives her consent for surgery. <Jose Fiore MD - Last Filed: 07/20/24 08:16> Time Spent With Patient Time: Total time managing care of this patient today ____ minutes. <Nemo Parson PA-C - Last Filed: 07/20/24 08:06> Quality Stroke Does the patient have a stroke diagnosis?: No <Nemo Parson PA-C - Last Filed: 07/20/24 08:06> VTE Prior VTE?: No <Nemo Parson PA-C - Last Filed: 07/20/24 08:06> VTE Risk Level:: Surgical - low <Nemo Parson PA-C - Last Filed: 07/20/24 08:06> VTE Device Contraindication: N/A - Device Ordered <Nemo Parson PA-C - Last Filed: 07/20/24 08:06> VTE Drug Contraindication: Treatment Not Indicated <Nemo Parson PA-C - Last Filed: 07/20/24 08:06>
[2024-07-20] MEDS: Docusate Sodium 100 MG CAPSULE PO (08:41)
[2024-07-20] MEDS: oxyCODONE HCl Immed Release 5 MG TABLET PO (10:16)
--- NOTE | 2024-07-20 12:31 | P.CONAN_ITS ---
HPI - Anesthesia Eval Consult details Narrative: For lap. cholecystectomy PMFSH Active Problems Active Problems: All Active Problems Biliary dyskinesia (Acute) Epigastric abdominal pain (Acute) Acute acalculous cholecystitis (Acute) Bilateral hand pain (Acute) Bilateral hand swelling (Acute) Past Medical History Patient : No Family History Family history of problems with anesthesia: No Surgical History Surgical History (Updated 07/20/24 @ 10:31 by Samantha Wynne RN) Hx of tubal ligation Hx of rhinoplasty Hx of tonsillectomy History of Problems with Anesthesia: No Social History Social History (System 03/04/22 @ 08:34 by Gina Galindo) Household Members: Children Housing: Apartment Do you presently have visiting nurse or other home services: No Unable to assess alcohol history related to: Unknown Patient Tobacco Use Status: Current everyday Tobacco user Tobacco use type: Smokeless Tobacco e-Cigarette/Vaping Use: Former Use Meds Allergies Allergy/AdvReac Type Severity Reaction Status Date / Time codeine [CODEINE] Allergy Intermediate HIVES Verified 07/18/24 16:30 clindamycin [CLINDAMYCIN] Allergy Mild HIVES Verified 07/18/24 16:30 vancomycin [VANCOMYCIN] Allergy Mild HIVES Verified 07/18/24 16:30 venlafaxine Allergy Mild VOMITS Verified 07/18/24 16:30 Clindamycin HCl Allergy Unknown hives Uncoded 09/03/23 22:20 Effexor AdvReac Unknown vomiting Uncoded 09/03/23 22:20 Active Medications: Current Medications Acetaminophen (Acetaminophen 325 Mg Tablet) 650 mg PO Q6H PRN PRN Reason: Pain, Mild 1-3,fever,headache Calcium Carbonate (Calcium Carbonate 750 Mg Tab.Chew) 750 mg PO Q4H PRN PRN Reason: Heartburn Cefotetan Disodium (Cefotetan Disodium 2 Gm Vial) 2 gm IVPUSH ONCE ONE Stop: 07/20/24 14:31 Docusate Sodium (Docusate Sodium 100 Mg Capsule) 100 mg PO BID CANDIS Last Admin: 07/20/24 08:41 Dose: 100 mg Hydromorphone HCl (Hydromorphone Hcl 1 Mg/Ml Syringe) 0.5 mg IVPUSH Q4H PRN; Protocol PRN Reason: Pain, Severe (Pain Scale 7-10) Last Admin: 07/20/24 06:09 Dose: 0.5 mg Dextrose/Sodium Chloride (D51/2ns) 1,000 mls @ 100 mls/hr IVCONT .Q10H [facility] Last Admin: 07/20/24 09:04 Dose: Not Given Magnesium Hydroxide (Milk Of Magnesia 30 Ml Oral.Susp) 30 ml PO DAILY PRN PRN Reason: Constipation Melatonin (Melatonin 3 Mg Tablet) 6 mg PO BEDTIME PRN PRN Reason: Insomnia Metoclopramide HCl (Metoclopramide Hcl 10 Mg/2 Ml Vial) 10 mg IVPUSH Q6H PRN PRN Reason: Nausea and Vomiting Last Admin: 07/20/24 05:20 Dose: 10 mg Ondansetron HCl (Ondansetron Hcl 4 Mg/2 Ml Vial) 4 mg IVPUSH Q8H PRN PRN Reason: Nausea and Vomiting Last Admin: 07/20/24 00:03 Dose: 4 mg Oxycodone HCl (Oxycodone Hcl Immed Release 5 Mg Tablet) 5 mg PO Q4H PRN PRN Reason: Pain, Moderate(Pain Scale 4-6) Last Admin: 07/20/24 10:16 Dose: 5 mg Pantoprazole Sodium (Pantoprazole Sodium 40 Mg/10 Ml Vial) 40 mg IVPUSH BID@0630,1630 [facility] Last Admin: 07/20/24 06:04 Dose: 40 mg Sodium Chloride (0.9 % Sodium Chloride Flush 3 Ml Syringe) 3 ml IVFLUSH QSHIFT [facility] Last Admin: 07/20/24 12:12 Dose: Not Given Home Medications ?Medication ?Instructions ?Recorded ?Confirmed ?Last Taken ?Type No Known Home Meds 07/19/24 07/19/24 Unknown History Exam Height,Weight and Vital Signs: Height 5 ft 3 in Weight 50.2 kg Last Vital Signs Temp 97.5 F 07/20/24 10:35 Pulse 58 07/20/24 10:35 Resp 20 07/20/24 10:35 BP 124/71 07/20/24 10:35 Pulse Ox 98 07/20/24 10:35 O2 Del Method Room Air 07/20/24 10:35 Pertinent Lab Results Pertinent Lab Results: Laboratory Tests 07/18/24 07/19/24 07/19/24 16:41 00:58 03:31 WBC 9.9 RBC 4.21 Hgb 13.5 Hct 39.0 MCV 92.6 MCH 32.1 MCHC 34.6 RDW 13.0 Plt Count 305 MPV 9.5 Immature Gran % (Auto) 0.3 Neut % (Auto) 65.9 Lymph % (Auto) 23.4 Patrick % (Auto) 7.0 Eos % (Auto) 2.8 Baso % (Auto) 0.6 Lymph # (Auto) 2.3 Patrick # (Auto) 0.7 Eos # (Auto) 0.3 Baso # (Auto) 0.1 Abs Immat Gran (auto) 0.03 Absolute Neuts (auto) 6.5 Absolute Nucleated RBC 0.000 Nucleated RBC % (auto) 0.0 Sodium 140 Potassium 3.9 Chloride 107 Carbon Dioxide 27 Anion Gap 10 L BUN 10 Creatinine 0.71 Estim Creat Clear Calc 83.5 Estimated GFR > 60 Random Glucose 93 Lactic Acid 0.7 Calcium 9.2 Magnesium 2.1 Total Bilirubin 0.5 0.6 Direct Bilirubin 0.1 0.2 AST 20 19 ALT 16 14 Alkaline Phosphatase 42 37 L Troponin I High Sens < 2.7 Total Protein 6.9 5.8 L Albumin 4.5 3.7 Lipase 27 Beta HCG, Quant < 2 07/19/24 03:32 WBC 8.4 RBC 3.96 L Hgb 12.7 Hct 36.4 L MCV 91.9 MCH 32.1 MCHC 34.9 RDW 13.2 Plt Count 252 MPV 9.4 Immature Gran % (Auto) 0.2 Neut % (Auto) 55.2 Lymph % (Auto) 30.9 Patrick % (Auto) 7.9 Eos % (Auto) 5.0 H Baso % (Auto) 0.8 Lymph # (Auto) 2.6 Patrick # (Auto) 0.7 Eos # (Auto) 0.4 Baso # (Auto) 0.1 Abs Immat Gran (auto) 0.02 Absolute Neuts (auto) 4.6 Absolute Nucleated RBC 0.000 Nucleated RBC % (auto) 0.0 Sodium Potassium Chloride Carbon Dioxide Anion Gap BUN Creatinine Estim Creat Clear Calc Estimated GFR Random Glucose Lactic Acid Calcium Magnesium Total Bilirubin Direct Bilirubin AST ALT Alkaline Phosphatase Troponin I High Sens Total Protein Albumin Lipase Beta HCG, Quant Airway Mallampati Class: I TM Dist: >3cm Neck ROM: Full Loose/Missing/Broken Teeth: No Heart: ok Lungs: ok Assessment and Plan Assessment Anesthesia Assessment: Anesthesia Plan Discussed and Chart Reviewed Final Anesthetic Review Family History of Problems with Anesthesia: No History of Problems with Anesthesia: No NPO: Yes ASA Class: II Final Preanesthetic Review: No Changes in Pt Med Stat, Meds/Allgs Chart Reviewed, Consent Obtained/Reviewed and Anes Risks/Benef Reviewed Patient Risk: Low Procedure Risk: Intermediate Anesthetic Plan Anesthetic Plan: GA and Agree w/ Assess. and Plan Disposition: Standard PACU
--- NOTE | 2024-07-20 12:47 | MHC.CM.PN ---
Addendum entered by Brisa Almodovar RN 07/20/24 14:45: Patient dc'd home self care via private transport prior to CM assessment. Original Note: Patient off unit. Will continue attempts to complete CM assessment.
--- NOTE | 2024-07-20 13:09 | P.OP_ITS ---
Operative Note Operative Note Date of Service: 07/20/24 Narrative: Preoperative diagnosis: Biliary dyskinesia Postoperative diagnosis: Same Procedure: Laparoscopic cholecystectomy Surgeon: Jose Fiore MD C[employer] Press Maintainer: Simon Mckenna PA-C, ALEXA Chatterjee Anesthesia: General endotracheal Indications for procedure: 38-year-old female patient presenting with severe right upper quadrant abdominal pain with associated nausea and vomiting of 48 hours duration found to have no gallstones by ultrasound but centrally and HIDA scan revealed a reduced ejection fraction suggestive of biliary dyskinesia. Operative findings: Evidence of chronic cholecystitis with inflammation and adhesions to the gallbladder. Specimen: gallbladder Estimated blood loss: 2 mL Complications: None Procedure details: Patient was brought to the OR and placed in a supine position. After administering general anesthesia the patient's abdomen was prepped with ChloraPrep and draped in a sterile fashion. A surgical time-out was called the consent confirmed. Patient received preoperative antibiotics and Venodyne boots were in place. Local anesthesia consisting of 0.5% Sensorcaine without epinephrine was infiltrated in a periumbilical region. A 5 mm incision was made above the umbilicus in a transverse fashion. The Veress needle was then inserted while elevating abdominal cavity with towel clips. After positive drop test the abdomen was insufflated to a pressure of 15 mm of mercury. The Veress needle was then removed and a 5 mm trocar inserted. The camera was inserted in the abdomen explored. A 12 mm trocar was then placed in the epigastrium. Two 5 mm trocars placed in the right upper quadrant by the field administrative assistant. The patient was placed in reverse Trendelenburg positioning and rotated to the left. The gallbladder was grasped with the fundus and retracted cephalad by the field administrative assistant. The infundibulum was then grasped and retracted away from the liver bed, also by the field administrative assistant. The Dolphin dissected was then used by the surgeon to dissect the peritoneum off the infundibulum to reveal the junction with the cystic duct. Cystic artery was noted slightly medial and posterior to the cystic duct. After obtaining a critical view the cystic duct was doubly clipped and divided. The cystic artery was then doubly clipped and divided. The gallbladder was then dissected off the liver bed using electrocautery with an L hook. Hemostasis was assured all times using the electrocautery. When the gallbladder is completely dissected off the liver bed was placed in an Endo-Catch bag and brought out through the epigastric incision. The gallbladder was sent to pathology for further examination. The abdomen was then re-examined. The liver bed was irrigated and suctioned dry. No bleeding or bile leak could be identified. CO2 was then evacuated and all trocars removed. Fascia was closed at the epigastric incision using a [id number] 0 Polysorb suture. Skin was closed in all incisions using a subcuticular 4 0 Polysorb suture by both the surgeon and field administrative assistant. Sterile dressings consisting of Steri-Strips, 2 x 2 gauze, and Tegaderm were then applied. The patient tolerated the procedure well. Sponge instrument and needle counts reported as correct. The patient was transferred to PACU in stable condition.
--- NOTE | 2024-07-20 14:38 | PC.NURSE ---
work form completed w/ Md instructions. iv removed.
--- NOTE | 2024-07-20 17:24 | PM.DS ---
DS: Providers Provider Date of Service: 07/20/24 Date of admission: 07/19/24 03:05 Date of discharge: 07/20/24 Primary care physician: Johnson Physician Attending physician on admission: Jose Fiore Attending physician on discharge: Jose Fiore DS: Diagnosis Discharge Diagnosis (1) Biliary dyskinesia: Status: Acute DS: Summary Hospital Course Hospital Course: HPI AT ADMISSION: Fiordaliza Sams is a 38 year old female with no significant PMH who presented to the ED for evaluation of abdominal pain. She reports she had acute onset of epigastric abdominal pain yesterday after eating at work. The pain was severe and sharp in nature and radiated to her upper mid back. The pain was associated with nausea and multiple episodes of vomiting. Due to the severity of pain, she presented to the ED for evaluation. Work up included CBC, BMP, LFTs which were all WNL. Vitals were WNL. ABD US and CT scan were obtained which showed no gallbladder stones or sludge but mild gallbladder wall thickening with positive sonographic Vicente sign with gallbladder wall thickening, raising concern for acalculous cholecystitis. She continues to have severe epigastric pain this morning, relieved by analgesics. She continues to feel nauseous and is dry heaving. She denies prior episodes of similar pain. She denies fever, chills, hematemesis, melena, hematochezia, diarrhea, constipation, dysuria, hematuria. She denies any NSAID or significant alcohol use. HOSPITAL COURSE: The patient was admitted to the surgical service for further treatment and evaluation of the abdominal pain. HIDA was obtained which showed filling of the gallbladder going against acute cholecystitis but 23% EF at 30min consistent with biliary dyskinesia. Discussed proceeding with laparoscopic cholecystectomy, possible open for treatment of this. She elected to proceed and was added onto the OR schedule for the following day. On 07/20/24, a laparoscopic cholecystectomy was performed by Dr. Fiore without complication. The patient tolerated the procedure well. She had an uncomplicated recovery course and felt well and was tolerating a solid diet without nausea or vomiting, had good pain control post operatively. She was hemodynamically stable. She felt ready for discharge. She was discharged to home on 07/20/24 in stable condition. She is to follow up in the office in 1 week. Status at Discharge Functional status at discharge: independent ambulation Overall status at discharge: patient is progressing back to baseline Time Attestation Discharge Coordination Time (in mins): 30 Quality: Safe Use of Opioids Does Pt have an Active Cancer Diagnosis on the Problem List?: No Quality: Stroke Does the patient have a stroke diagnosis?: No Physical Exam Vital Signs: Vital Signs: Last Vital Signs Temp 98.0 F 07/20/24 14:28 Pulse 51 07/20/24 14:28 Resp 20 07/20/24 14:28 BP 136/67 07/20/24 14:28 Pulse Ox 99 07/20/24 14:28 O2 Del Method Room Air 07/20/24 14:28 BMI result Body Mass Index 19.6 Const: General: comfortable, no acute distress and alert Orientation/consciousness: patient oriented x3 Resp: Effort & Inspection: normal respiratory effort GI: Inspection: No distended and Yes incision (dressings intact ) Palpation (GI): Soft to palpation, Tenderness to palpation present (GI) (mild incisional) and no guarding Skin: General skin exam: no rashes or lesions noted and no jaundice Neuro: General: patient oriented x3 DS: Data Data Completed and Pending Completed studies during hospitalization [Text1]: 07/20/24 12:45 Surgical [PTH] Routine Gallbladder, cholecystectomy: Mild chronic cholecystitis. Discharge Plan Discharge Anticipated Discharge Date/Time: 07/20/24 17:49 Patient Disposition: Home, Self-Care Discharge Diagnosis: biliary dyskinesia s/p laparoscopic cholecystectomy Referrals: Jose Fiore MD [Physician] - 1 Week Physician,Johnson Servin [Primary Care Provider] - 1 Week Discharge Medications: New oxycodone 5 mg tablet 5 mg PO Q6H PRN (Reason: pain (scale score 7-10)) Qty: 15 0RF Rx Instructions: Partial Fill upon patient request. Discharge Orders: Discharge Order (Routine); Ordered 07/20/24 Ordered By: Jose Fiore Diet: Low fat, low cholesterol Activity on Discharge: No heavy lifting Stand Alone Forms: Patient Portal Discharge page, Work/School Release Print Language: Belgian Activity Restrictions/Additional Instructions: If the incision area is tender, you may apply an ice pack for short intervals (No more than 20 minutes on, followed by at least 20 minutes off). Do not apply heat. Do not use creams, lotions, or topical antibiotics. Ok to shower. Remove clear dressings 3 days following your procedure. You have steri strips (small white cloth strips) covering your incision- these will fall off ~1 week. No heavy lifting (>10lbs) or strenuous activity! Take Tylenol Extra-strength 1-2 tabs every 6 hours for the first day, then as needed. Oxycodone every 6-8 hours as needed for pain. Colace 100 mg twice a day as needed for constipation. Follow up in office with Dr. Fiore in 1 week. ([phone]) Call Your Doctor If: -Your temperature exceeds 101.5? F -You experience excessive pain or swelling -You have an unexpected reaction to medication -You have excessive bleeding -You experience continued vomiting/nausea -Your incision begins to separate -Your incision shows signs of infection such as increased redness, swelling, excessive pain, drainage (light blood or clear fluid is normal) or heat Care Plan Goals: Return to baseline health and resume normal activities following recovery period. Health Concerns: biliary dyskinesia Plan of Treatment: s/p laparoscopic cholecystectomy pain control follow up in the office in 1 week for wound check Assessment: Doing well post op. Discharge Date/Time: 07/20/24 14:43
== END 2024-07-20 14:43 | disposition home or self-care (01) | DRG 263 ==
LOC: HO.ED 07-19 03:23 → HO.EDOVER 07-19 08:07 → HO.S3 07-19 09:07
PROVIDERS: Physician Assistant Medical; Surgery; Admitting Provider Physician Assistant Surgical; Emergency Provider Emergency Medicine; Visit Provider Physician Assistant Surgical
PROC: 0FT44ZZ Resection of Gallbladder, Percutaneous Endoscopic Approach (ICD-10-PCS; CPT 47562; principal; 2024-07-20 11:50)
DX: K82.8 Other specified diseases of gallbladder (principal); F17.210 Nicotine dependence, cigarettes, uncomplicated; Z71.6 Tobacco abuse counseling
CPT/HCPCS: 36415; 71046; 74018; 74177; 76705; 78227; 80053; 80076; 82248; 83605; 83690; 83735; 84484; 84702; 85025; 87040; 88304; 93005; 99221; 99285; A9537; J1171; J1308; J1885; J2003; J2270; J2405; J2470; J2543; J2704; J2765; J2805; J3010; Q9967

== ENCOUNTER → 2024-07-18 16:30 | Outpatient (BNV) | payer OTHER, SELFPAY | PROVIDERS: Visit Provider Radiology Diagnostic Radiology | DX: K82.8 Other specified diseases of gallbladder (principal); R91.8 Other nonspecific abnormal finding of lung field; R10.9 Unspecified abdominal pain | CPT/HCPCS: 71046; 74018; 76705 ==

== ENCOUNTER → 2024-07-18 16:30 | Outpatient (BNV) | payer OTHER, SELFPAY | PROVIDERS: Admitting Provider Physician Assistant Surgical; Emergency Provider Emergency Medicine; Visit Provider Internal Medicine | DX: R94.31 Abnormal electrocardiogram [ECG] [EKG] (principal); R07.9 Chest pain, unspecified | CPT/HCPCS: 93010 ==

== ENCOUNTER 2024-07-19 03:05 | Outpatient (BNV) | payer OTHER, SELFPAY | END 2024-07-19 07:30 | PROVIDERS: Admitting Provider Physician Assistant Surgical; Emergency Provider Emergency Medicine; Visit Provider Radiology Diagnostic Radiology | DX: K82.8 Other specified diseases of gallbladder (principal) | CPT/HCPCS: 78227 ==

== ENCOUNTER → 2024-07-19 03:05 | Outpatient (BNV) | payer OTHER, SELFPAY | PROVIDERS: Admitting Provider Physician Assistant Surgical; Emergency Provider Emergency Medicine; Visit Provider Physician Assistant Surgical | DX: K82.8 Other specified diseases of gallbladder (principal) | CPT/HCPCS: 47562; 99024; 99222 ==

== ENCOUNTER 2024-07-20 17:35 | Emergency (ER) | payer OTHER, SELFPAY ==
[2024-07-20 17:36] VITALS: BP 138/83; PULSE 76; RESP 16; TEMP 36.6; O2SAT 98; BMI 19.0
--- NOTE | 2024-07-20 18:05 | ED.WOUNDLAC ---
HPI - Wound/Laceration General Chief Complaint: Wound/Laceration Stated Complaint: surgery today bleeding from incision Time Seen by Provider: 07/20/24 17:53 Source: patient and family Mode of arrival: ambulatory Limitations: no limitations History of Present Illness ED Provider: ARIELLE GRIDER PA-C HPI narrative: 38 year old female presents to the ED for evaluation of bleeding from surgical incision site s/p laprascopic cholecystectomy this morning with Dr. Spence. She was discharged earlier today. She was informed that she may experience some bleeding from her incision sites and that this is normal. 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 She states she is concerned with the amount of blood noted on the dressing, prompting her to come to the ED. She is not on AC. She has not other complaints. Denies any significant abdominal pain. Related Data Previous Rx's ?Medication ?Instructions ?Recorded oxycodone 5 mg tablet 5 mg PO Q6H PRN pain (scale score 07/20/24 7-10) #15 tabs Allergies Allergy/AdvReac Type Severity Reaction Status Date / Time codeine [CODEINE] Allergy Intermediate HIVES Verified 07/20/24 17:38 clindamycin [CLINDAMYCIN] Allergy Mild HIVES Verified 07/20/24 17:38 vancomycin [VANCOMYCIN] Allergy Mild HIVES Verified 07/20/24 17:38 venlafaxine Allergy Mild VOMITS Verified 07/20/24 17:38 Clindamycin HCl Allergy Unknown hives Uncoded 09/03/23 22:20 Effexor AdvReac Unknown vomiting Uncoded 09/03/23 22:20 Review of Systems Review of Systems: Constitutional: No fever, chills, fatigue, night sweats, weight changes ENT/Mouth: No ear pain, hearing loss, nasal congestion, sinus pain, rhinorrhea, sore throat Eyes: No eye pain, swelling, redness, vision changes, discharge Cardio: No chest pain, palpitations, COSTA, orthopnea, peripheral edema Pulm: No SOB, cough, sputum, wheezing, dyspnea, hemoptysis GI: No nausea, vomiting, hematemesis, abdominal pain, diarrhea, constipation, hematochezia, melena : No irregular bleeding, dysuria, frequency, urgency, hesitancy, hematuria, flank pain, urinary flow changes, urinary incontinence or retention MSK: No back pain, neck pain, joint pain, myalgias Skin: No lesions, rashes, +bleeding from incision site Neuro: No weakness, numbness, paresthesias, LOC, dizziness, headache Psych: No anxiety/panic, depression, SI/HI, AH/VH All other systems reviewed and are negative. [facility] Past Medical History Attestation statement: The following information was validated with the patient. Source: old records reviewed and nursing notes reviewed Surgical History Hx of tubal ligation Hx of rhinoplasty Hx of tonsillectomy Social History Social History Household Members: Children Housing: Apartment Do you presently have visiting nurse or other home services: No Unable to assess alcohol history related to: Unknown Patient Tobacco Use Status: Current everyday Tobacco user Tobacco use type: Smokeless Tobacco e-Cigarette/Vaping Use: Former Use Advance Directives: No Advance Directives Information Provided: No Do you have a plan to hurt others: No Plan Physical Exam Vital Signs: Vital Signs: Last Vital Signs Temp 97.8 F 07/20/24 18:42 Pulse 76 07/20/24 18:42 Resp 16 07/20/24 18:42 BP 138/83 07/20/24 18:42 Pulse Ox 98 07/20/24 18:42 O2 Del Method Room Air 07/20/24 18:42 BMI result Body Mass Index 19.0 vital signs stable General: Well appearing, in no acute distress. Skin: Warm, dry, intact. No rashes or lesions. Head: Normocephalic, atraumatic. EENT: Hearing is intact b/l. Conjunctiva clear. PERRLA. EOM intact. Moist mucous membranes.? Cardiac: Chest wall symmetric. RRR Lungs: Normal respiratory effort without accessory muscle use. CTA bilaterally Abdomen: +minimal blood noted to gauze over umbilicus. no active bleeding/ hemorrhage. steri strips in place. no surrounding erythema, no discharge. no significant tenderness. no palpable flutuance or induration. no expressible blood. abdomen is soft, ND/NT, no rebound or guarding. Back: No midline spinous or paraspinal tenderness. No step off deformity. Ext: Upper and lower extremities atraumatic, without tenderness, deformity, swelling or erythema Neuro: AOx3. Normal speech. Ambulating with steady gait. Psych: Appropriate mood and affect. Responds appropriately to questions. Course Course Course Narrative: I spoke with dr. spence. This is to be expected post-op. He recommends replacing dressing and advising patient to ice x20 minutes every 1-2 hours. Discussed with patient. she feels this is reasonable. dressing changed. advised outpatient follow up as scheduled. Patient has remained stable throughout ED visit today. Discussed worrisome signs and symptoms and when to return to the ED. All questions answered at this time. Patient is agreeable with disposition and stable for discharge. Medical Decision Making Medical Decision Making MDM Narrative: 38 year old female presents to the ED for evaluation of bleeding from surgical incision site s/p laprascopic cholecystectomy this morning. she is well appearing and in NAD. afebrile. not tachycardic or hypotensive. on exam, minimal blood noted to gauze over umbilicus. no active bleeding/ hemorrhage. steri strips in place. no surrounding erythema, no discharge. no significant tenderness. no palpable flutuance or induration. no expressible blood. abdomen is soft, ND/NT, no rebound or guarding. Will reach out to general surgeon dr. spence for recommendation. Likely normal post-op finding. I do not have suspicion for intra-abdominal bleed/ hematoma/ seroma/ infection at this time. Differential Diagnosis Differential Diagnoses: The differential diagnosis associated with the presentation includes as above. Admission/Observation not indicated. Consult Healthcare Provider Management of the patient was discussed with: Telecom Engineer (general surgery - dr. spence) External Record Review External record reviewed: Inpatient record, Office record, Outpatient record, Prior outpatient labs and Prior outpatient radiology Social Determinants Patient?s care significantly limited by Social Determinants of Health including: Other Social Determinant of Health Critical Care Time Critical Care Time Critical Care Time: No Discharge Plan Discharge Clinical Impression: Encounter for post surgical wound check Patient Disposition: Home, Self-Care Instructions: Laparoscopic Cholecystectomy (DC) Additional Instructions: You were evaluated in the ED today for surgical wound check. Dr. Spence was contacted - we are not concerned for intraabdominal bleeding or surgical complication. Some bleeding from your incision site is to be expected. We recommend applying an ice pack to the area for 20 minutes every 1-2 hours. Follow up with general surgery as scheduled. Return with any new or worsening symptoms. In the case of an emergency call 911. Prescriptions: No Action oxycodone 5 mg tablet 5 mg PO Q6H PRN (Reason: pain (scale score 7-10)) Qty: 15 0RF Rx Instructions: Partial Fill upon patient request. Referrals: [facility] [place] General Surgeons [Provider Group] Interventions: ED Discharge Assessment Last Done: 07/20/24 18:42 Discharge Date/Time: 07/20/24 18:10 Print Language: Yemeni
[2024-07-20 18:42] VITALS: BP 138/83; PULSE 76; RESP 16; TEMP 36.6; O2SAT 98
== END 2024-07-20 18:10 | disposition home or self-care (01) ==
PROVIDERS: Emergency Provider Emergency Medicine
DX: L76.22 Postprocedural hemorrhage of skin and subcutaneous tissue following other procedure (principal); F17.210 Nicotine dependence, cigarettes, uncomplicated
CPT/HCPCS: 99282

== ENCOUNTER 2024-07-26 10:33 | Outpatient (AMB) | payer OTHER, SELFPAY ==
--- NOTE | 2024-07-26 10:45 | MHC.OFFVIS ---
Vital Signs 07/26/24 10:51 Height 5 ft 3 in Weight 110 lb 2 oz BMI 19.5 BP 124/76 Blood Pressure Location Lt brachial Position Sitting Pulse 72 Intake Visit Reasons: gallbladder removal Intake Note: Patient is seen in office for post op assessment post laparoscopic cholecystectomy. 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 Required: No Accompanied by: Self / Same As Patient Allergies codeine [CODEINE] Allergy (Intermediate, Verified 07/26/24 10:52) HIVES clindamycin [CLINDAMYCIN] Allergy (Mild, Verified 07/26/24 10:52) HIVES vancomycin [VANCOMYCIN] Allergy (Mild, Verified 07/26/24 10:52) HIVES venlafaxine Allergy (Mild, Verified 07/26/24 10:52) VOMITS Clindamycin HCl Allergy (Unknown, Uncoded 07/26/24 10:52) hives Effexor Adverse Reaction (Unknown, Uncoded 07/26/24 10:52) vomiting HPI HPI gallbladder removal: Details: Fiordaliza Sams is a 38 year old female who initially presented to the ED with severe right upper quadrant abdominal pain with associated nausea and vomiting of 48 hours duration found to have no gallstones by ultrasound but centrally and HIDA scan revealed a reduced ejection fraction suggestive of biliary dyskinesia. She therefore underwent a laparoscopic cholecystectomy on 07/20/24. She tolerated the procedure well and was discharged the same day. She reports feeling better today but had difficulty with pain at her lower ribs bilaterally for a few days after the surgery. She is sore at the incision sites. She is no longer taking anything for the pain. She is tolerating a solid diet. She is having normal bowel movements. She denies fever, chills, nausea, vomiting, diarrhea, constipation. She has no concerns. [facility] Surgical History History of laparoscopic cholecystectomy (07/20/24) Hx of tubal ligation Hx of rhinoplasty Hx of tonsillectomy Social History Household Members: Children Housing: Apartment Do you presently have visiting nurse or other home services: No Unable to assess alcohol history related to: Unknown Patient Tobacco Use Status: Current everyday Tobacco user Tobacco use type: Smokeless Tobacco e-Cigarette/Vaping Use: Former Use Review of Systems Const All systems reviewed & are unremarkable except as noted in HPI and below Physical Exam Vital Signs: Last Vital Signs Pulse 72 07/26/24 10:51 BP 124/76 07/26/24 10:51 BMI result Body Mass Index 19.5 Const General: comfortable, no acute distress and alert Orientation/consciousness: patient oriented x3 Chest Other: tenderness to palpation of b/l lower ribs Resp Effort & Inspection: normal respiratory effort, able to speak in complete sentences and not labored GI Other: steris remain in place and were removed incisions clean and well approximated, mild tenderness and residual induration of epigastric site, no erythema RUQ nontender abd soft Percussion: Yes normal to percussion Skin General skin exam: no rashes or lesions noted and no jaundice Neuro General: patient oriented x3 and moves all extremities Results Reviewed Results Reviewed: Gallbladder, cholecystectomy: Mild chronic cholecystitis Assessment & Plan Assessment & Plan (1) S/P laparoscopic cholecystectomy: Code(s): Z90.49 - Acquired absence of other specified parts of digestive tract Category: Surgical Plan 38 year old female 6 days s/p laparoscopic cholecystectomy for biliary dyskinesia. She tolerated the procedure well. She is clinically appearing well with a benign abdominal exam, mild incisional tenderness. Incisions are healing well and clean appearing without evidence of infection. She was instructed to continue no heavy lifting/strenuous activities for another two weeks and then she can gradually increase her activity. She has no concerns. She can follow up as needed. Medications: Discontinued oxycodone Partial Fill upon patient request. Discontinued Reason: Patient Completed Course 5 mg PO Q6H PRN 15 tabs 0RF pain (scale score 7-10) Coding Level of Care Code Global (71683) Diagnoses S/P laparoscopic cholecystectomy Z90.49
[2024-07-26 10:51] VITALS: BP 124/76; PULSE 72; BMI 19.5
== END 2024-07-26 11:11 | disposition home or self-care (01) ==
PROVIDERS: Visit Provider Physician Assistant Surgical
DX: Z90.49 Acquired absence of other specified parts of digestive tract (principal)
CPT/HCPCS: 99024

== ENCOUNTER → 2024-07-26 10:33 | Outpatient (BNVA) | payer OTHER, SELFPAY | PROVIDERS: Visit Provider Physician Assistant Surgical | DX: Z90.49 Acquired absence of other specified parts of digestive tract (principal); Z98.890 Other specified postprocedural states | CPT/HCPCS: 99212 ==

== ENCOUNTER 2024-12-11 10:18 | Outpatient (AMB) | payer OTHER, SELFPAY ==
--- NOTE | 2024-12-11 10:59 | A.OFFVIS_ITS ---
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: Lead Java Developer Architect Present (Magui) Accompanied by: Self / Same As Patient Allergies codeine (CODEINE) Allergy (Intermediate, Verified 12/11/24 11:07) HIVES clindamycin (CLINDAMYCIN) Allergy (Mild, Verified 12/11/24 11:07) HIVES vancomycin (VANCOMYCIN) Allergy (Mild, Verified 12/11/24 11:07) HIVES venlafaxine Allergy (Mild, Verified 12/11/24 11:07) VOMITS Clindamycin HCl Allergy (Unknown, Uncoded 07/26/24 10:52) hives Effexor Adverse Reaction (Unknown, Uncoded 07/26/24 10:52) vomiting Medication List - Last Reconciled 12/11/24 by Janiya Sood CNM No Known Home Meds Is last menstrual period known: Yes Last menstrual period: 12/03/24 Post menopausal: No Patient : No HPI HPI 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 She came to [facility] for all of her pregnancies and delivered all of her children with the midwifery practice they are now ages 18 17 12 and 8. She says she quit smoking a couple of years ago and recently quit smoking marijuana about a month ago. She was in alf for a couple of years and she she was able to get her children back from foster care some time after that. She says they are doing well I asked if they had support and therapist since she said they do. She is not having any health issues she would like STI testing but she declines blood work today. She has a primary care provider in [place] via [facility] but it is hard to get in for appointments she has not had a mammogram yet. Her periods are starting to get a little irregular and she is wondering if it is ana laura menopausal changes she had her tubes tied after her last 1. [facility] Medical History (Updated 12/11/24 @ 11:34 by Janiya Sood CNM) Biliary dyskinesia Epigastric abdominal pain Acute acalculous cholecystitis Surgical History (Updated 12/11/24 @ 11:34 by Janiya T [place], CNM) History of laparoscopic cholecystectomy (07/20/24) Hx of tubal ligation Hx of rhinoplasty Hx of tonsillectomy Social History (Updated 12/11/24 @ 11:00 by Magui Clancy MA) Household Members: Children Housing: Apartment Do you presently have visiting nurse or other home services: No Unable to assess alcohol history related to: Unknown Patient Tobacco Use Status: Current everyday Tobacco user Tobacco use type: Smokeless Tobacco e-Cigarette/Vaping Use: Former Use Patient : No Current occupational status: employed 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 [employer] Female Reproductive History Menstrual Date of last menstrual period: 12/03/24 control method: permanent sterilization Total pregnancies: 10 Full term: 2 Premature: 2 History of abnormal pap smear: Yes Physical Exam Vital Signs: Last Vital Signs BP 124/72 12/11/24 11:02 BMI result Body Mass Index 20.4 Const General: healthy appearing, comfortable, no acute distress, well developed and alert Nutritional Appearance: average body habitus Orientation/consciousness: patient oriented x3 Limitations: no limitations HEENT Head: Yes normocephalic Neck Neck: Yes normal visual inspection Chest Chest palpation & inspection: normal inspection of the chest Breast/axilla inspection: normal inspection of the breasts and normal inspection of the axillae Breast/axilla palpation: normal palpation of the breasts and normal palpation of the axillae Resp Effort & Inspection: normal respiratory effort GI Inspection: Yes normal to inspection, No Abdominal wall edema and No distended Palpation (GI): Soft to palpation and nontender Other: External exam within normal limits vagina is pink slightly dry cervix parous long close thick mobile nontender firm scant mucus consistent with luteal phase uterus midposition mobile nontender adnexa nontender nonenlarged fair tone with Kegel small external hemorrhoid noted but not swollen or inflamed at all General: Yes bladder normal to palpation External Female Exam: normal external appearance and normal appearance of the urethra Speculum Exam - Vagina: normal appearance of the vagina, normal palpation and normal vaginal discharge Speculum Exam - Cervix: normal appearance of the cervix, normal palpation and nontender Bimanual exam- vagina & uterus: normal bimanual exam, normal palpation, uterine size normal, bladder normal to palpation, consistency normal, normal palpation, uterine mobility normal, uterine shape normal, No Cervical tenderness present, non-tender and no cervical motion tenderness Bimanual Exam- Adnexa, other: normal adnexae, no masses, normal and No adnexal tenderness Neuro General: patient oriented x3 Assessment & Plan Assessment & Plan (1) Well woman exam with routine gynecological exam: Code(s): Z01.419 - Encounter for gynecological examination (general) (routine) without abnormal findings Category: Medical (2) Hx of tubal ligation: Code(s): Z98.51 - Tubal ligation status Category: Surgical (3) Breast cancer screening: Code(s): Z12.39 - Encounter for other screening for malignant neoplasm of breast Category: Medical Plan -----Discussed in this visit the following: healthy balanced diet, regular and consistent exercise, getting recommended health screens, doing the best she can for her particular health concerns, kegel exercises, pap smear screening and followup recommendations, mammography screening and SBE, normal changes in cycles in her life stage--- . I am ordering a mammogram for her she will be following up with her primary. Congratulated on quitting smoking. She feels she is doing fairly well being in alf was hard. She has her kids back and she says they have therapy, and are doing well. Pap smear done as well as testing for STIs I did offer blood work but she did not think she needed that. Orders: Orders MM tomosynthesis screening BI Today Z12.31 - Encounter for screening mammogram for malignant neoplasm of breast Coding Level of Care Code New Pt Prev Care 40-64y(61620) Diagnoses Well woman exam with routine gynecological exam Z01.419 Hx of tubal ligation Z98.51 Breast cancer screening Z12.39
[2024-12-11 11:02] VITALS: BP 124/72; BMI 20.4
== END 2024-12-11 13:05 | disposition home or self-care (01) ==
LOC: HO.HWSM 10:18
PROVIDERS: Visit Provider Advanced Practice Midwife
DX: Z01.419 Encounter for gynecological examination (general) (routine) without abnormal findings (principal); Z98.51 Tubal ligation status; Z12.39 Encounter for other screening for malignant neoplasm of breast
CPT/HCPCS: 99386; 99459

== ENCOUNTER 2024-12-11 10:18 | Outpatient (REF) | payer OTHER, SELFPAY ==
[2024-12-12 04:51] LABS: Bacterial Vaginosis PCR POSITIVE (Negative); Candida Group PCR NOT DETECTED (Not Detect); Candida glab krusei PCR NOT DETECTED (Not Detect); Trichomonas vaginalis PCR NOT DETECTED (Not Detect)
[2024-12-12 05:16] LABS: CT PCR NOT DETECTED (Not Detect.); NG PCR NOT DETECTED (Not Detect.)
== END 2024-12-11 10:19 | disposition home or self-care (01) ==
LOC: HO.LNP 10:18
PROVIDERS: Advanced Practice Midwife; Visit Provider Advanced Practice Midwife
DX: Z01.419 Encounter for gynecological examination (general) (routine) without abnormal findings (principal); Z12.39 Encounter for other screening for malignant neoplasm of breast; Z12.31 Encounter for screening mammogram for malignant neoplasm of breast; Z98.51 Tubal ligation status; Z20.2 Contact with and (suspected) exposure to infections with a predominantly sexual mode of transmission
CPT/HCPCS: 81515; 87491; 87591; 87626; 88175; 99386